=== PATIENT | female | born 1955 | race Caucasian/White ===

== ENCOUNTER 2022-08-20 07:00 | Outpatient (NON) | payer MEDICARE, SELFPAY | END 2022-08-21 10:00 | disposition home or self-care (01) | PROVIDERS: PCP Internal Medicine; Visit Provider Internal Medicine Gastroenterology | DX: Z12.11 Encounter for screening for malignant neoplasm of colon (principal); D12.2 Benign neoplasm of ascending colon; D12.4 Benign neoplasm of descending colon; D12.3 Benign neoplasm of transverse colon | CPT/HCPCS: 88305 ==

== ENCOUNTER 2022-08-20 07:48 | Day surgery (SDC) | payer MEDICARE, SELFPAY ==
[2022-06-07 09:56] VITALS: BMI 27.1
[2022-08-06 14:37] VITALS: BMI 27.1
--- NOTE | 2022-08-17 14:49 | PM.HPGS ---
History of Present Illness History of Present Illness Consent: Risks, benefits, and alternatives have been discussed and questions answered. Patient agrees to proceed with procedure. Chief complaint: History of colon polyps Narrative: Alba Arora is a 67 year old female who was referred for colon cancer screening. She had a tubular adenoma and another polyp removed about 6 years ago. Her brother from colon cancer recently. There is also strong family history of precancerous polyps. Review of Systems Review of Systems: All systems reviewed & are unremarkable except as noted in HPI and below PMFSH Past Medical History Medical History Anxiety Depression Diabetes type 2, controlled GERD (gastroesophageal reflux disease) Hyperlipidemia Hypertension Hypothyroidism Surgical History Surgical History History of thyroidectomy Social History Social History Smoking status: Never smoker Alcohol intake: never Substance use: never Substance use type: does not use Living arrangements: alone Spiritual care concerns: No Meds Home Medications and Allergies Home Medications Medication Instructions Recorded Confirmed Type amlodipine 10 mg tablet 10 mg PO DAILY 06/07/22 08/20/22 History glimepiride 2 mg tablet 2 mg PO BID 06/07/22 08/20/22 History levothyroxine 75 mcg tablet 75 mcg PO DAILY 06/07/22 08/20/22 History lovastatin 40 mg tablet 40 mg PO DAILY 06/07/22 08/20/22 History metformin 1,000 mg tablet 1,000 mg PO BID 06/07/22 08/20/22 History nortriptyline 10 mg capsule 10 mg PO DAILY 06/07/22 08/20/22 History omeprazole 40 mg capsule,delayed 40 mg PO DAILY 06/07/22 08/20/22 History release oxybutynin chloride 5 mg tablet 5 mg PO DAILY 06/07/22 08/20/22 History sertraline 100 mg tablet 10 mg PO DAILY 06/07/22 08/20/22 History Allergies Allergy/AdvReac Type Severity Reaction Status Date / Time Sulfa (Sulfonamide Allergy Severe Rash Verified 08/20/22 08:09 Antibiotics) Exam Const: General: alert Orientation/consciousness: patient oriented x3 Resp: Auscultation: clear to auscultation bilaterally Cardio: Rhythm: regular rhythm GI: GI Palp: Yes Soft to palpation and No Tenderness to palpation present (GI) Neuro: General: patient oriented x3 Assessment and Plan Assessment and plan (1) Colon cancer screening: Code(s): Z12.11 - Encounter for screening for malignant neoplasm of colon Status: Acute Assessment and Plan: Colonoscopy with possible biopsy or polypectomy or cautery or injection of substances.
--- NOTE | 2022-08-20 07:44 | WPDANESEPPF ---
Anes - Initial Pre Proc Eval Procedure: Operation Date: 08/20/22 09:30 Proposed Procedures p Diagnostic Colonoscopy - Bertrand Almonte MD Date/Time: 08/20/22 07:44 Surgeon: Bertrand Almonte MD Pre Op Diagnosis: History of colon polyps Patient Data Age: 67 Gender: F Height: 1.52 m Weight: 63 kg Allergies Allergy/AdvReac Type Severity Reaction Status Date / Time Sulfa (Sulfonamide Allergy Severe Rash Verified 08/20/22 08:09 Antibiotics) Home Medications Medication Instructions Recorded Confirmed Type amlodipine 10 mg tablet 10 mg PO DAILY 06/07/22 08/20/22 History glimepiride 2 mg tablet 2 mg PO BID 06/07/22 08/20/22 History levothyroxine 75 mcg tablet 75 mcg PO DAILY 06/07/22 08/20/22 History lovastatin 40 mg tablet 40 mg PO DAILY 06/07/22 08/20/22 History metformin 1,000 mg tablet 1,000 mg PO BID 06/07/22 08/20/22 History nortriptyline 10 mg capsule 10 mg PO DAILY 06/07/22 08/20/22 History omeprazole 40 mg capsule,delayed 40 mg PO DAILY 06/07/22 08/20/22 History release oxybutynin chloride 5 mg tablet 5 mg PO DAILY 06/07/22 08/20/22 History sertraline 100 mg tablet 10 mg PO DAILY 06/07/22 08/20/22 History Patient hx anesthesia problems: none Family hx anesthesia problems: none Results Review: All pre-operative results and documents have been reviewed as part of the pre-operative evaluation. [facility] Past Medical History Medical History (Updated 08/20/22 @ 07:45 by Matthias Ledesma DO) Anxiety Depression Diabetes type 2, controlled GERD (gastroesophageal reflux disease) Hyperlipidemia Hypertension Hypothyroidism Surgical History Surgical History (Updated 08/20/22 @ 07:44 by Matthias Ledesma DO) History of thyroidectomy Social History Social History Smoking status: Never smoker Alcohol intake: never Substance use: never Substance use type: does not use Living arrangements: alone Spiritual care concerns: No Anes - Eval Final PreProcedure Day of Procedure 08/20/22 07:44 Patient weight: overweight Heart: regular rate and rhythm Lungs: clear to auscultation Airway: Mallampati scale class II Neurological: alert and oriented Last oral intake: >/= 8 hours ASA classification: III Emergent: no Anesthetic plan: proceed Anesthesia type and monitoring: general GIVS and standard monitoring Results Review: All pre-operative results and documents have been reviewed as part of the pre-operative evaluation. Informed Consent: The patient's anesthetic plan and its attendant risks and benefits were discussed with the patient/family/POA. Questions were solicited and answers provided to the satisfaction of the patient/family/POA.
[2022-08-20 08:10] VITALS: BP 152/98; PULSE 104; RESP 18; TEMP 36.6; O2SAT 99
[2022-08-20] MEDS: LACTATED RINGERS 1,000 ML 150 ML IV CONT (08:19)
[2022-08-20 09:53] VITALS: BP 98/62; PULSE 80; RESP 14; O2SAT 94
[2022-08-20 10:03] VITALS: BP 100/65; PULSE 86; RESP 16; O2SAT 98
--- NOTE | 2022-08-20 12:04 | WPDANESPN ---
Anes - Prog Note Post-Op Date/Time: 08/20/22 12:04 Cardiovascular status: normal Respiratory status: normal Airway patency: baseline Mental status: baseline Post-Op hydration status: normal Vital Signs: Last Vital Signs Temp 36.6 C 08/20/22 08:10 Pulse 86 08/20/22 10:03 Resp 16 08/20/22 10:03 BP 100/65 08/20/22 10:03 Pulse Ox 98 08/20/22 10:03 O2 Del Method Room Air 08/20/22 10:03 Pain Score (VAS): 0 I/O: Intake & Output 08/19/22 08/20/22 08/20/22 23:59 07:59 15:59 Intake Total 922 Balance 922 Post-procedural complaints: none Patient Feedback: Patient satisfied with anesthetic care. Other Findings: Patient vital signs back to baseline. Patient denies nausea and vomiting. Patient's pain under control. Patient OK for discharge.
== END 2022-08-20 10:33 | disposition home or self-care (01) ==
PROVIDERS: PCP Internal Medicine; Visit Provider Internal Medicine Gastroenterology
PROC: 0DJD8ZZ Inspection of Lower Intestinal Tract, Via Natural or Artificial Opening Endoscopic (ICD-10-PCS; CPT 45378; principal; 2022-08-20 09:30)
DX: Z12.11 Encounter for screening for malignant neoplasm of colon (principal)
CPT/HCPCS: 45385

== ENCOUNTER 2024-05-01 10:13 | Inpatient (IN) | payer MEDICARE, SELFPAY ==
[2024-05-01] VITALS (18 sets, daily range): BP systolic 105–136; BP diastolic 59–83; PULSE 75–97; RESP 13–25; TEMP 36.6–36.9; O2SAT 89–100; BMI 24.5
--- NOTE | ~2024-05-01 | XR_ITS ---
XR chest 2V DATE: 05/01/2024 11:19 INDICATION: Bilateral basilar rhonchi TECHNIQUE: 2 views COMPARISON: None FINDINGS: Normal heart size. There are mild bibasilar infiltrates and/or atelectasis. The lungs otherwise appear clear. No pleural effusion or pulmonary vascular congestion or pneumothorax. Osteopenia. IMPRESSION: Mild bilateral lower lobe infiltrate and/or atelectasis Reviewed, dictated and finalized at location A. [facility] [employer]
--- NOTE | 2024-05-01 10:24 | ECG_ITS ---
Test Date: 2024-05-01 10:30:11 Measurements Intervals [place] Rate: 91 P: 50 [place]: 162 QRS: 21 QRSD: 90 T: 70 QT: 351 QTc: 433 Interpretive Statements SINUS RHYTHM DELAYED PRECORDIAL R/S TRANSITION BORDERLINE T WAVE ABNORMALITY- HIGH LATERAL LEADS BASELINE ARTIFACT- I, III, AVR, AVL, AVF, V6 BORDERLINE ECG No previous ECG available for comparison Electronically Signed On 05-01-2024 10:33:15 [employer]PA[employer] by Chepe Gupta D.O.
--- NOTE | 2024-05-01 10:34 | ED.GENADULT ---
HPI - General Adult General Chief complaint: Shortness of Breath/Dyspnea Stated complaint: SOB & Fever Time Seen by Provider: 05/01/24 10:22 History of Present Illness HPI narrative: This is a pleasant 69-year-old female presenting ED with chief complaint of fevers and shortness of breath. Patient developed a cough 3 weeks ago. She had been doing better and then got acutely worse several days ago. Now she is short of breath, has a productive cough and fevers. 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 Related Data Home Medications Medication Instructions Recorded Confirmed amlodipine 10 mg tablet 10 mg PO DAILY 06/07/22 08/20/22 glimepiride 2 mg tablet 2 mg PO BID 06/07/22 08/20/22 levothyroxine 75 mcg tablet 75 mcg PO DAILY 06/07/22 08/20/22 lovastatin 40 mg tablet 40 mg PO DAILY 06/07/22 08/20/22 metformin 1,000 mg tablet 1,000 mg PO BID 06/07/22 08/20/22 nortriptyline 10 mg capsule 10 mg PO DAILY 06/07/22 08/20/22 omeprazole 40 mg capsule,delayed 40 mg PO DAILY 06/07/22 08/20/22 release oxybutynin chloride 5 mg tablet 5 mg PO DAILY 06/07/22 08/20/22 sertraline 100 mg tablet 10 mg PO DAILY 06/07/22 08/20/22 Allergies Allergy/AdvReac Type Severity Reaction Status Date / Time Sulfa (Sulfonamide Allergy Severe Rash Verified 08/20/22 08:09 Antibiotics) [facility] Past Medical History Medical History Anxiety Depression Diabetes type 2, controlled GERD (gastroesophageal reflux disease) Hyperlipidemia Hypertension Hypothyroidism Surgical History Surgical History History of thyroidectomy Social History Social History Smoking status: Never smoker Alcohol intake: never Substance use: never Substance use type: does not use Living arrangements: alone Spiritual care concerns: No Exam Narrative: APPEARANCE: ill-appearing Head: atraumatic. EYES: EOMI, NOSE: Atraumatic NECK: Trachea midline RESPIRATORY: Tachypneic, hypoxic on room air, bibasilar rhonchi CARDIOVASCULAR: tachycardic, no peripheral edema ABDOMINAL: Non-distended soft nontender MUSCULOSKELETAl: No obvious deformities NEURO: Alert. Moving 4/4 extremities SKIN:: Warm, dry. Normal color PSYCHIATRIC: Normal affect Course Vital Signs Vital signs: Vital Signs Temperature 97.8 F 05/01/24 10:14 Pulse Rate 97 05/01/24 10:14 Respiratory Rate 18 05/01/24 10:14 Blood Pressure 124/69 05/01/24 10:14 Pulse Oximetry 98 05/01/24 10:14 Oxygen Delivery Nasal Cannula 05/01/24 10:14 Oxygen Flow Rate 2 05/01/24 10:14 Temperature 97.8 F 05/01/24 10:14 Pulse Rate 76 05/01/24 11:42 Respiratory Rate 13 05/01/24 11:42 Blood Pressure 112/62 05/01/24 11:42 Pulse Oximetry 97 05/01/24 11:42 Oxygen Delivery Nasal Cannula 05/01/24 10:24 Oxygen Flow Rate 2 05/01/24 10:24 Medical Decision Making MDM Narrative Medical decision making narrative: -Course: 61-year-old female presenting with 3 weeks of cough which has become acutely worse. Now she is hypoxic requiring supplemental oxygen and having fevers. Bibasilar rhonchi. Atelectasis versus bibasilar pneumonia on chest x-ray. Patient's history and physical are consistent with secondary pneumonia after viral illness. Patient be started on antibiotics/given fluid resusc and admitted to the hospital for hypoxic respiratory failure and pneumonia. Vital Signs Vital Signs: Vital Signs Temperature 97.8 F 05/01/24 10:14 Pulse Rate 97 05/01/24 10:14 Respiratory Rate 18 05/01/24 10:14 Blood Pressure 124/69 05/01/24 10:14 Pulse Oximetry 98 05/01/24 10:14 Oxygen Delivery Nasal Cannula 05/01/24 10:14 Oxygen Flow Rate 2 05/01/24 10:14 Temperature 97.8 F 05/01/24 10:14 Pulse Rate 76 05/01/24 11:42 Respiratory Rate 13 05/01/24 11:42 Blood Pressure 112/62 05/01/24 11:42 Pulse Oximetry 97 05/01/24 11:42 Oxygen Delivery Nasal Cannula 05/01/24 10:24 Oxygen Flow Rate 2 05/01/24 10:24 Lab Data 05/01/24 10:36 05/01/24 10:36 Labs: Lab Results 05/01/24 05/01/24 Range/Units 10:36 11:53 WBC 8.7 (4.5-10.0) K/mm3 RBC 3.68 L (4.2-5.4) M/mm3 Hgb 11.3 L (12.0-15.0) g/dL Hct 34.1 L (37.0-47.0) % MCV 92.7 (80-100) fl MCH 30.7 (26-34) pg MCHC 33.1 (32-36) g/dl RDW 14.2 (11.5-14.5) % Plt Count 236 (150-375) k/mm3 MPV 9.9 (7.4-10.4) fl Immature Gran % (Auto) 0.5 (0-0.5) % Neut % (Auto) 69.0 (45.5-73.1) % Lymph % (Auto) 17.5 L (18.3-44.2) % [place] % (Auto) 12.2 H (2.6-8.5) % Eos % (Auto) 0.5 (0-4.4) % Baso % (Auto) 0.3 (0.2-1.2) % Lymph # (Auto) 1.52 (0.9-3.2) K/mm3 [place] # (Auto) 1.1 H (0.1-0.6) K/mm3 Eos # (Auto) 0.0 (0-0.3) K/mm3 Baso # (Auto) 0.0 (0.0-0.1) K/mm3 Abs Immat Gran (auto) 0.04 H (0.00-0.031) K/mm3 Absolute Neuts (auto) 6.0 (1.3-6.7) K/mm3 Absolute Nucleated RBC 0.000 (0.0-0.012) K/mm3 Nucleated RBC % 0.0 (0.0-0.2) % Sodium 139 (137-145) mmol/L Potassium 4.2 (3.4-5.0) mmol/L Chloride 102 (98-107) mmol/L Carbon Dioxide 27 (22-30) mmol/L Anion Gap 10 (4-12) mmol/L BUN 25 H (7-17) mg/dL Creatinine 1.00 (0.7-1.0) mg/dL Estim Creat Clear Calc 34 ml/min Estimated GFR 55 L (59 - ) Glucose 187 H (65-110) mg/dL POC Capillary Glucose 122 H (65-105) mg/dl Lactic Acid 1.3 (0.7-2.0) mmol/L Calcium 9.1 (8.4-10.2) mg/dL Total Bilirubin 0.6 (0.2-1.3) mg/dL AST 21 (14-36) U/L ALT 15 (6-35) U/L Alkaline Phosphatase 79 (38-126) U/L Total Protein 7.0 (6.3-8.2) g/dL Albumin 3.6 (3.5-5.1) g/dL Influenza A (RT-PCR) Negative (Negative) Influenza B (RT-PCR) Negative (Negative) RSV (RT-PCR) Negative (Negative) SARS-CoV-2 RNA (RT-PCR) Negative (Negative) ABG Data ABG results: 05/01/24 10:59 Puncture Site Left radial ABG pH 7.453 H ABG pCO2 34.9 L ABG pO2 59.1 L ABG PO2/FiO2 Ratio 2.11 ABG HCO3 23.9 ABG O2 Saturation 92.0 L ABG O2 Content 15.0 L ABG Base Excess 0.3 A-a Gradient 99.4 Oxyhemoglobin 90.6 Total Hemoglobin 11.8 L O2 Delivery Device Nasal cannula O2 Liters/Min 2.0 FiO2 28 Critical Care Time Critical Care Time Critical Care Time: Yes Total Critical Care Time: 35 Discharge Plan Discharge Clinical Impression: Hypoxic respiratory failure, Pneumonia Patient Disposition: Still a Patient Condition: Stable Prescriptions: No Action lovastatin 40 mg tablet 40 mg PO DAILY sertraline 100 mg tablet 10 mg PO DAILY omeprazole 40 mg capsule,delayed release(DR/EC) 40 mg PO DAILY glimepiride 2 mg tablet 2 mg PO BID levothyroxine 75 mcg tablet 75 mcg PO DAILY amlodipine 10 mg tablet 10 mg PO DAILY metformin 1,000 mg tablet 1,000 mg PO BID nortriptyline 10 mg capsule 10 mg PO DAILY oxybutynin chloride 5 mg tablet 5 mg PO DAILY Follow-up/Referrals: Clive,Don Daley MD [Primary Care Provider] -
[2024-05-01] MEDS: ACETAMINOPHEN 500 MG TABLET 1000 MG PO (10:47)
[2024-05-01] MEDS: KETOROLAC 15 MG/ML VIAL (*BKC) IV PUSH (10:47)
[2024-05-01] MEDS: SODIUM CHLORIDE 0.9% IV 2,000 ML 999 ML IV CONT (10:48)
[2024-05-01 10:55] LABS: Basophils Percent Auto 0.3 % (0.2-1.2); Eosinophils Percent Auto 0.5 % (0-4.4); Hematocrit 34.1 % (37.0-47.0); Hemoglobin 11.3 g/dL (12.0-15.0); Immature Granulocyte Absolute 0.04 K/mm3 (0.00-0.031); Immature Granulocyte Percent A 0.5 % (0-0.5); Lymphocytes Absolute Auto 1.52 K/mm3 (0.9-3.2); Lymphocytes Percent Auto 17.5 % (18.3-44.2); Mean Corpuscular HGB Conc 33.1 g/dl (32-36); Mean Corpuscular Hemoglobin 30.7 pg (26-34); Mean Corpuscular Volume 92.7 fl (80-100); Mean Platelet Volume 9.9 fl (7.4-10.4); Monocytes Absolute Auto 1.1 K/mm3 (0.1-0.6); Monocytes Percent Auto 12.2 % (2.6-8.5); Platelet Count Result 236 k/mm3 (150-375); Red Blood Count 3.68 M/mm3 (4.2-5.4); Red Cell Distribution Width 14.2 % (11.5-14.5); White Blood Count 8.7 K/mm3 (4.5-10.0)
[2024-05-01 11:01] LABS: Alanine Aminotransferase 15 U/L (6-35); Albumin Level 3.6 g/dL (3.5-5.1); Alkaline Phosphatase 79 U/L (38-126); Anion Gap 10 mmol/L (4-12); Aspartate Amino Transferase 21 U/L (14-36); Bilirubin,Total 0.6 mg/dL (0.2-1.3); Blood Urea Nitrogen 25 mg/dL (7-17); Calcium 9.1 mg/dL (8.4-10.2); Carbon Dioxide 27 mmol/L (22-30); Chloride 102 mmol/L (98-107); Estimated CRCL calculation 34 ml/min; Estimated Glomerular Filt Rate 55; Glucose 187 mg/dL (65-110); Lactic Acid Reflex 1.3 mmol/L (0.7-2.0); Potassium 4.2 mmol/L (3.4-5.0); Sodium 139 mmol/L (137-145)
[2024-05-01 11:02] LABS: Alveolar/Arterial O2 Gradient 99.4 mmHg; Base Excess ABG 0.3 mEq/l (+/-2.0); Fractional Inspired Oxygen 28 %; HCO3 ABG 23.9 mEq/l (22.0-26.0); Oxyhemoglobin 90.6 % THb (90.0-100.0); PCO2 ABG 34.9 mmHg (35.0-45.0); PO2 ABG 59.1 mmHg (80.0-100.0); PO2 FiO2 Ratio Arterial Blood 2.11 %; Total Hemoglobin 11.8 g/dL (12.0-18.0); pH ABG 7.453 (7.350-7.450)
[2024-05-01 11:04] LABS: Device NASAL CANNULA; Modified Allen's Test Pass; Site Drawn LEFT RADIAL
[2024-05-01 11:29] LABS: Influenza A QL RT-PCR Negative (Negative); Influenza B QL RT-PCR Negative (Negative); RSV RNA, RT-PCR Negative (Negative); SARS-CoV-2 RNA PCR Negative (Negative)
[2024-05-01 11:56] LABS: Glucose Point of Care 122 mg/dl (65-105)
[2024-05-01] MEDS: DOXYCYCLINE 100 MG/NS 100 ML 100 MG/100 ML BAG IVPB ×2 (12:13→20:36)
--- NOTE | 2024-05-01 13:10 | PM.IMHP ---
H&P: HPI History of Present Illness Date/Time: 05/01/24 13:10 Chief Complaint: Shortness of breath Narrative: This is a pleasant 69-year-old female presenting ED with chief complaint of fevers and shortness of breath. Patient developed a cough 3 weeks ago. She had been doing better and then got acutely worse several days ago. Now she is short of breath, has a productive cough and fevers. 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 Review of Systems Review of Systems: - CONSTITUTIONAL: Denies weight loss, fever and chills. - HEENT: Denies changes in vision and hearing - RESPIRATORY: Reports SOB and cough. - CV: Denies palpitations and CP. - GI: Denies abdominal pain, nausea, vomiting and diarrhea. - : Denies dysuria and urinary frequency. - MSK: Denies myalgia and joint pain. - SKIN: Denies rash and pruritus. - NEUROLOGICAL: Denies headache and syncope. - PSYCHIATRIC: Denies recent changes in mood. Denies anxiety and depression. [facility], [facility] Past Medical History Medical History Anxiety Depression Diabetes type 2, controlled GERD (gastroesophageal reflux disease) Hyperlipidemia Hypertension Hypothyroidism Surgical History Surgical History History of thyroidectomy Social History Social History Smoking status: Never smoker Alcohol intake: never Substance use: never Substance use type: does not use Living arrangements: alone Spiritual care concerns: No Meds Home Medications and Allergies Home Medications Medication Instructions Recorded Confirmed Type amlodipine 10 mg tablet 10 mg PO DAILY 06/07/22 05/01/24 History glimepiride 2 mg tablet 2 mg PO BID 06/07/22 05/01/24 History levothyroxine 75 mcg tablet 75 mcg PO DAILY 06/07/22 05/01/24 History metformin 1,000 mg tablet 1,000 mg PO BID 06/07/22 05/01/24 History omeprazole 40 mg capsule,delayed 40 mg PO DAILY 06/07/22 05/01/24 History release oxybutynin chloride 5 mg tablet 5 mg PO BID 06/07/22 05/01/24 History sertraline 100 mg tablet 100 mg PO DAILY 06/07/22 05/01/24 History lisinopril 5 mg tablet 5 mg PO DAILY 05/01/24 05/01/24 History rosuvastatin 20 mg tablet 20 mg PO 1700 05/01/24 05/01/24 History Allergies Allergy/AdvReac Type Severity Reaction Status Date / Time Sulfa (Sulfonamide Allergy Severe Rash Verified 08/20/22 08:09 Antibiotics) Vital Signs Vital Signs - 24 hr 05/01/24 10:14 05/01/24 10:20 05/01/24 10:24 Temperature 97.8 F Pulse Rate 97 Respiratory Rate 18 Blood Pressure 124/69 Pulse Oximetry 98 89 L 99 Oxygen Delivery Nasal Cannula Room Air Nasal Cannula Oxygen Flow Rate 2 2 05/01/24 10:20 05/01/24 11:42 05/01/24 11:43 Temperature Pulse Rate 76 82 Respiratory Rate 13 18 Blood Pressure 112/62 Pulse Oximetry 99 97 97 Oxygen Delivery Nasal Cannula Oxygen Flow Rate 2 05/01/24 11:45 05/01/24 11:46 05/01/24 12:00 Temperature Pulse Rate 81 78 80 Respiratory Rate 13 20 25 H Blood Pressure 115/62 117/59 L Pulse Oximetry 97 96 98 Oxygen Delivery Oxygen Flow Rate 05/01/24 12:01 05/01/24 12:15 05/01/24 12:30 Temperature Pulse Rate 80 75 76 Respiratory Rate 21 H 18 16 Blood Pressure 117/83 118/59 L Pulse Oximetry 98 100 95 Oxygen Delivery Oxygen Flow Rate 05/01/24 12:31 05/01/24 12:45 05/01/24 12:46 Temperature Pulse Rate 76 77 75 Respiratory Rate 17 19 14 Blood Pressure 118/62 Pulse Oximetry 93 94 95 Oxygen Delivery Oxygen Flow Rate Exam Narrative: APPEARANCE: well-appearingAcute distress Head: atraumatic. EYES: EOMI, NOSE: Atraumatic NECK: Trachea midline RESPIRATORY: Diminished breath sounds bilaterally no respiratory distress CARDIOVASCULAR: Regular rate and rhythm, no peripheral edema ABDOMINAL: Non-distended soft nontender MUSCULOSKELETAl: No obvious deformities NEURO: Alert. Moving 4/4 extremities SKIN:: Warm, dry. Normal color PSYCHIATRIC: Normal affect H&P: Results Labs Labs: Short CBC 05/01/24 Range/Units 10:36 WBC 8.7 (4.5-10.0) K/mm3 Hgb 11.3 L (12.0-15.0) g/dL Hct 34.1 L (37.0-47.0) % Plt Count 236 (150-375) k/mm3 BMP 05/01/24 10:36 Sodium 139 Potassium 4.2 Chloride 102 Carbon Dioxide 27 BUN 25 H Creatinine 1.00 Glucose 187 H Calcium 9.1 Liver Function 05/01/24 Range/Units 10:36 Total Bilirubin 0.6 (0.2-1.3) mg/dL AST 21 (14-36) U/L ALT 15 (6-35) U/L Alkaline Phosphatase 79 (38-126) U/L Albumin 3.6 (3.5-5.1) g/dL Assessment and Plan Assessment and plan (1) Hypoxic respiratory failure: Code(s): J96.91 - Respiratory failure, unspecified with hypoxia Status: Acute (2) Pneumonia: Code(s): J18.9 - Pneumonia, unspecified organism Status: Acute Plan This is a pleasant 69-year-old female presenting ED with chief complaint of fevers and shortness of breath. Patient developed a cough 3 weeks ago. She had been doing better and then got acutely worse few days ago. Now she is short of breath, has a productive cough and fevers. 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 Evaluation in the ED showed vitals were stable except for hypoxia he chest x-ray showed this is versus bibasilar pneumonia. WBC normal is 8.7 hemoglobin 11.3 hematocrit 34.1 chemistry panel was unremarkable better glycemia 187. Lactic acid was 1.3. Influenza RSV and COVID was negative. ABG 7.45/34/59/23. She has been started on ceftriaxone and doxycycline for pneumonia. Urine antigens will be ordered. Continue oxygen supplementation. Likely secondary to pneumonia. Hypothyroidism Hyperlipidemia Type 2 diabetes on oral hypoglycemic agent at home DVT prophylaxis Lovenox Code status full code Hospitalist MIPS Advance Care Plan I have confirmed that the patient's Advanced Care Plan is present, code status is documented, or surrogate decision maker is listed in patient medical record.: Yes Medication Reconciliation I have utilized all available resources to obtain, update and review the patients current medications (includes all prescriptions, OTC, herbals, cannabis, and nutritional supplements).: Yes
--- NOTE | 2024-05-01 13:33 | ADMGEN ---
This patient, Alba Arora, was admitted to [facility] Surg Room 300-01. Patient/family oriented to hospital policies and general routines including ID bracelet, bed and alarms, visiting hours, pain management, procedures, bathroom and other care routines, personal items, smoking policy, room service/diet, and visiting hours. Information on how to activate the Rapid Response Team has been discussed. Patient/Family are encouraged to report perceived risks to care and to ask questions if they do not understand what they are told or what they should do.
[2024-05-01] MEDS: ENOXAPARIN 40 MG/0.4 ML SYRINGE SUB-Q (13:38)
[2024-05-01] MEDS: oxyBUTYnin CHLORIDE 5 MG TABLET PO (16:04)
[2024-05-01] MEDS: ROSUVASTATIN 20 MG TABLET PO (16:04)
[2024-05-01 16:43] LABS: Hemoglobin A1C 6.2 % (<5.7)
[2024-05-01 17:12] LABS: Glucose Point of Care 153 mg/dl (65-105)
[2024-05-01 20:57] LABS: Glucose Point of Care 175 mg/dl (65-105)
[2024-05-01] MEDS: guaiFENesin 12 HR 600 MG TABCR 1200 MG PO (21:07)
[2024-05-01] MEDS: ACETAMINOPHEN 325 MG TABLET 650 MG PO (21:07)
[2024-05-01] MEDS: ALBUTEROL SULFATE (*SP) AEROSOL 1 PUFF 2 PUFF INHALATION (21:11)
[2024-05-02] MEDS: ALBUTEROL SULFATE (*SP) AEROSOL 1 PUFF 2 PUFF INHALATION (05:27)
[2024-05-02] MEDS: ACETAMINOPHEN 325 MG TABLET 650 MG PO ×2 (05:28→12:06)
[2024-05-02] MEDS: LEVOTHYROXINE SODIUM 75 MCG TABLET PO (05:36)
[2024-05-02 06:00] VITALS: BP 132/69; PULSE 71; RESP 18; TEMP 36.6; O2SAT 97
[2024-05-02 07:42] LABS: Glucose Point of Care 190 mg/dl (65-105)
[2024-05-02 08:00] VITALS: O2SAT 97
[2024-05-02] MEDS: SERTRALINE HCL 50 MG TABLET 100 MG PO (08:39)
[2024-05-02] MEDS: lisinopriL 5 MG TABLET PO (08:40)
[2024-05-02] MEDS: oxyBUTYnin CHLORIDE 5 MG TABLET PO ×2 (08:40→17:34)
[2024-05-02] MEDS: PANTOPRAZOLE 40 MG TABLET PO (08:40)
[2024-05-02] MEDS: guaiFENesin 12 HR 600 MG TABCR 1200 MG PO ×2 (08:40→20:02)
[2024-05-02] MEDS: amLODIPine BESYLATE 10 MG TABLET PO (08:40)
[2024-05-02] MEDS: DOXYCYCLINE 100 MG/NS 100 ML 100 MG/100 ML BAG IVPB ×2 (08:40→20:01)
[2024-05-02] MEDS: ENOXAPARIN 40 MG/0.4 ML SYRINGE SUB-Q (08:41)
[2024-05-02 09:20] VITALS: O2SAT 97
--- NOTE | 2024-05-02 10:53 | P.PNIM_ITS ---
Progress Note: A&P Assessment and Plan (1) Hypoxic respiratory failure: Code(s): J96.91 - Respiratory failure, unspecified with hypoxia Status: Acute (2) Pneumonia: Code(s): J18.9 - Pneumonia, unspecified organism Status: Acute Plan This is a pleasant 69-year-old female presenting ED with chief complaint of fevers and shortness of breath. Patient developed a cough 3 weeks ago. She had been doing better and then got acutely worse few days ago. Now she is short of breath, has a productive cough and fevers. 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 Evaluation in the ED showed vitals were stable except for hypoxia he chest x-ray showed this is versus bibasilar pneumonia. WBC normal is 8.7 hemoglobin 11.3 hematocrit 34.1 chemistry panel was unremarkable better glycemia 187. Lactic acid was 1.3. Influenza RSV and COVID was negative. ABG 7.45/34/59/23. She has been started on ceftriaxone and doxycycline for pneumonia. Urine antigens will be ordered. Continue oxygen supplementation. Likely secondary to pneumonia. Taper oxygen as tolerated. Hypothyroidism Hyperlipidemia Type 2 diabetes on oral hypoglycemic agent at home DVT prophylaxis Lovenox Code status full code Subjective Date/time seen: 05/02/24 10:53 Interval history: No overnight events. Feels better. Still on 2 L oxygen. Labs reviewed discussed with the patient. Review of Systems Review of Systems: All systems reviewed & are unremarkable except as noted in HPI and below Exam Narrative: APPEARANCE: well-appearingAcute distress Head: atraumatic. EYES: EOMI, NOSE: Atraumatic NECK: Trachea midline RESPIRATORY: Diminished breath sounds bilaterally no respiratory distress CARDIOVASCULAR: Regular rate and rhythm, no peripheral edema ABDOMINAL: Non-distended soft nontender MUSCULOSKELETAl: No obvious deformities NEURO: Alert. Moving 4/4 extremities SKIN:: Warm, dry. Normal color PSYCHIATRIC: Normal affect Objective Data Vital Signs Vital Signs: Vital Signs - 24 hr 05/01/24 11:42 05/01/24 11:43 05/01/24 11:45 Temperature Pulse Rate 76 82 81 Respiratory Rate 13 18 13 Blood Pressure 112/62 Pulse Oximetry 97 97 97 Oxygen Delivery Oxygen Flow Rate Fraction of Inspired Oxygen 05/01/24 11:46 05/01/24 12:00 05/01/24 12:01 Temperature Pulse Rate 78 80 80 Respiratory Rate 20 25 H 21 H Blood Pressure 115/62 117/59 L Pulse Oximetry 96 98 98 Oxygen Delivery Oxygen Flow Rate Fraction of Inspired Oxygen 05/01/24 12:15 05/01/24 12:30 05/01/24 12:31 Temperature Pulse Rate 75 76 76 Respiratory Rate 18 16 17 Blood Pressure 117/83 118/59 L Pulse Oximetry 100 95 93 Oxygen Delivery Oxygen Flow Rate Fraction of Inspired Oxygen 05/01/24 12:45 05/01/24 12:46 05/01/24 13:48 Temperature Pulse Rate 77 75 Respiratory Rate 19 14 Blood Pressure 118/62 Pulse Oximetry 94 95 95 Oxygen Delivery Nasal Cannula Oxygen Flow Rate 2 Fraction of Inspired Oxygen 05/01/24 14:00 05/01/24 21:18 05/01/24 20:00 Temperature 98.1 F 98.4 F Pulse Rate 83 96 Respiratory Rate 18 18 Blood Pressure 105/60 136/72 Pulse Oximetry 97 92 92 Oxygen Delivery Nasal Cannula Oxygen Flow Rate 2 Fraction of Inspired Oxygen 05/02/24 06:00 05/02/24 08:00 05/02/24 09:20 Temperature 98 F Pulse Rate 71 Respiratory Rate 18 Blood Pressure 132/69 Pulse Oximetry 97 97 97 Oxygen Delivery Nasal Cannula Nasal Cannula Oxygen Flow Rate 2 2 Fraction of Inspired Oxygen 28 Intake/Output Intake/Output: Intake & Output 04/29/24 04/30/24 05/01/24 05/02/24 23:59 23:59 23:59 23:59 Intake Total 2940 998 Output Total 500 Balance 2940 498 Meds/Results Medications: Active Medications Generic Name Dose Route Start Last Admin Trade Name Freq PRN Reason Stop Dose Admin Acetaminophen 650 mg 05/01/24 20:44 05/02/24 05:28 Acetaminophen 325 Mg Tablet PO 650 mg Q6H PRN Administration Mild Pain (1-3) or Fever Albuterol 2 puff 05/01/24 20:44 05/02/24 05:27 Albuterol Sulfate (*Sp) Aerosol 1 Puff INHALATION 2 puff QIDRT PRN Administration Shortness Of Breath Amlodipine Besylate 10 mg 05/02/24 09:00 05/02/24 08:40 Amlodipine Besylate 10 Mg Tablet PO 10 mg DAILY STEFANIE Administration Dextrose 12.5 gm 05/01/24 15:08 Dextrose 50% 25 Gm/50 Ml Syringe IV PUSH PRN PRN Hypoglycemia Protocol Enoxaparin Sodium 40 mg 05/01/24 13:15 05/02/24 08:41 Enoxaparin 40 Mg/0.4 Ml Syringe SUB-Q 40 mg DAILY STEFANIE Administration Glucagon 1 mg 05/01/24 15:08 Glucagon For Inj 1 Mg Vial IM PRN PRN Hypoglycemia Protocol Glucose 15 gm 05/01/24 15:08 Glucose Oral Gel 15 Gm Of Glucse In 37.5 Gm Tube PO PRN PRN Hypoglycemia Protocol Guaifenesin 1,200 mg 05/01/24 21:00 05/02/24 08:40 Guaifenesin 12 Hr 600 Mg Tabcr PO 1,200 mg Q12HR STEFANIE Administration Ceftriaxone Sodium 1 gm in 50 mls @ 100 mls/hr 05/02/24 12:00 Rocephin 1 Gm/Ns 50 Ml IVPB Q24H STEFANIE Doxycycline Hyclate 100 mg in 100 mls @ 100 mls/hr 05/01/24 21:00 05/02/24 08:40 Vibramycin 100 Mg/Ns 100 Ml IVPB 100 mls/hr Q12H STEFANIE Administration Dextrose 1,000 mls @ 100 mls/hr 05/01/24 15:08 Dextrose 5% 1,000 Ml IVPB PRN PRN Hypoglycemia Protocol Insulin Aspart 2 - 5 units 05/01/24 17:00 05/02/24 08:41 Insulin Aspart (*Bkc) 100 Units/Ml SUB-Q Not Given TIDWM STEFANIE Protocol Insulin Aspart 1 - 2 units 05/01/24 21:00 05/01/24 20:53 Insulin Aspart (*Bkc) 100 Units/Ml SUB-Q Not Given HS STEFANIE Protocol Levothyroxine Sodium 75 mcg 05/02/24 06:30 05/02/24 05:36 Levothyroxine Sodium 75 Mcg Tablet PO 75 mcg DAILY@0630 STEFANIE Administration Lisinopril 5 mg 05/02/24 09:00 05/02/24 08:40 Lisinopril 5 Mg Tablet PO 5 mg DAILY STEFANIE Administration Oxybutynin Chloride 5 mg 05/01/24 17:00 05/02/24 08:40 Oxybutynin Chloride 5 Mg Tablet PO 5 mg BID STEFANIE Administration Pantoprazole Sodium 40 mg 05/02/24 09:00 11/30/24 08:40 Pantoprazole 40 Mg Tablet PO 40 mg QAM STEFANIE Administration Rosuvastatin Calcium 20 mg 05/01/24 17:00 05/01/24 16:04 Rosuvastatin 20 Mg Tablet PO 20 mg 1700 STEFANIE Administration Sertraline HCl 100 mg 05/02/24 09:00 05/02/24 08:39 Sertraline Hcl 50 Mg Tablet PO 100 mg DAILY STEFANIE Administration Radiology Results: ITS Impressions Chest X-Ray 05/01/24 11:23 IMPRESSION: Mild bilateral lower lobe infiltrate and/or atelectasis Labs Labs: Laboratory Results - last 24 hr 05/01/24 05/01/24 05/01/24 10:36 10:59 11:53 WBC 8.7 RBC 3.68 L Hgb 11.3 L Hct 34.1 L MCV 92.7 MCH 30.7 MCHC 33.1 RDW 14.2 Plt Count 236 MPV 9.9 Immature Gran % (Auto) 0.5 Neut % (Auto) 69.0 Lymph % (Auto) 17.5 L [place] % (Auto) 12.2 H Eos % (Auto) 0.5 Baso % (Auto) 0.3 Lymph # (Auto) 1.52 [place] # (Auto) 1.1 H Eos # (Auto) 0.0 Baso # (Auto) 0.0 Abs Immat Gran (auto) 0.04 H Absolute Neuts (auto) 6.0 Absolute Nucleated RBC 0.000 Nucleated RBC % 0.0 Puncture Site Left radial ABG pH 7.453 H ABG pCO2 34.9 L ABG pO2 59.1 L ABG PO2/FiO2 Ratio 2.11 ABG HCO3 23.9 ABG O2 Saturation 92.0 L ABG O2 Content 15.0 L ABG Base Excess 0.3 A-a Gradient 99.4 Oxyhemoglobin 90.6 Total Hemoglobin 11.8 L O2 Delivery Device Nasal cannula O2 Liters/Min 2.0 FiO2 28 Sodium 139 Potassium 4.2 Chloride 102 Carbon Dioxide 27 Anion Gap 10 BUN 25 H Creatinine 1.00 Estim Creat Clear Calc 34 Estimated GFR 55 L Glucose 187 H POC Capillary Glucose 122 H Hemoglobin A1c 6.2 H Lactic Acid 1.3 Calcium 9.1 Total Bilirubin 0.6 AST 21 ALT 15 Alkaline Phosphatase 79 Total Protein 7.0 Albumin 3.6 Influenza A (RT-PCR) Negative Influenza B (RT-PCR) Negative RSV (RT-PCR) Negative SARS-CoV-2 RNA (RT-PCR) Negative 05/01/24 05/01/24 05/02/24 17:08 19:52 07:34 WBC RBC Hgb Hct MCV MCH MCHC RDW Plt Count MPV Immature Gran % (Auto) Neut % (Auto) Lymph % (Auto) [place] % (Auto) Eos % (Auto) Baso % (Auto) Lymph # (Auto) [place] # (Auto) Eos # (Auto) Baso # (Auto) Abs Immat Gran (auto) Absolute Neuts (auto) Absolute Nucleated RBC Nucleated RBC % Puncture Site ABG pH ABG pCO2 ABG pO2 ABG PO2/FiO2 Ratio ABG HCO3 ABG O2 Saturation ABG O2 Content ABG Base Excess A-a Gradient Oxyhemoglobin Total Hemoglobin O2 Delivery Device O2 Liters/Min FiO2 Sodium Potassium Chloride Carbon Dioxide Anion Gap BUN Creatinine Estim Creat Clear Calc Estimated GFR Glucose POC Capillary Glucose 153 H 175 H 190 H Hemoglobin A1c Lactic Acid Calcium Total Bilirubin AST ALT Alkaline Phosphatase Total Protein Albumin Influenza A (RT-PCR) Influenza B (RT-PCR) RSV (RT-PCR) SARS-CoV-2 RNA (RT-PCR)
[2024-05-02 11:45] LABS: Glucose Point of Care 152 mg/dl (65-105)
[2024-05-02] MEDS: BENZONATATE 100 MG CAPSULE PO ×2 (12:06→17:34)
[2024-05-02 13:46] VITALS: BP 104/51; PULSE 76; RESP 16; TEMP 36.6; O2SAT 96
[2024-05-02] MEDS: guaiFENesin/CODEINE (*CRX) 200/20 MG 10 ML SYRUP PO ×2 (15:26→20:02)
[2024-05-02 16:34] LABS: Glucose Point of Care 86 mg/dl (65-105)
[2024-05-02] MEDS: ROSUVASTATIN 20 MG TABLET PO (17:34)
[2024-05-02 22:00] VITALS: BP 111/61; PULSE 74; RESP 18; TEMP 36.6; O2SAT 98
[2024-05-02 22:50] LABS: Glucose Point of Care 123 mg/dl (65-105)
[2024-05-03] MEDS: guaiFENesin/CODEINE (*CRX) 200/20 MG 10 ML SYRUP PO ×5 (01:05→20:46)
[2024-05-03] MEDS: BENZONATATE 100 MG CAPSULE PO ×4 (01:05→16:41)
[2024-05-03] MEDS: LEVOTHYROXINE SODIUM 75 MCG TABLET PO (05:33)
[2024-05-03 06:00] VITALS: BP 112/64; PULSE 87; RESP 18; TEMP 36.4; O2SAT 98
[2024-05-03 06:20] LABS: Basophils Percent Auto 0.5 % (0.2-1.2); Eosinophils Absolute Auto 0.2 K/mm3 (0-0.3); Eosinophils Percent Auto 2.3 % (0-4.4); Hematocrit 31.6 % (37.0-47.0); Hemoglobin 10.2 g/dL (12.0-15.0); Immature Granulocyte Percent A 1.2 % (0-0.5); Lymphocytes Absolute Auto 1.93 K/mm3 (0.9-3.2); Lymphocytes Percent Auto 23.2 % (18.3-44.2); Mean Corpuscular HGB Conc 32.3 g/dl (32-36); Mean Corpuscular Hemoglobin 30.4 pg (26-34); Mean Corpuscular Volume 94.3 fl (80-100); Mean Platelet Volume 9.4 fl (7.4-10.4); Monocytes Absolute Auto 0.8 K/mm3 (0.1-0.6); Monocytes Percent Auto 9.3 % (2.6-8.5); Neutrophils Absolute Auto 5.3 K/mm3 (1.3-6.7); Neutrophils Percent Auto 63.5 % (45.5-73.1); Platelet Count Result 258 k/mm3 (150-375); Red Blood Count 3.35 M/mm3 (4.2-5.4); Red Cell Distribution Width 14.3 % (11.5-14.5); White Blood Count 8.3 K/mm3 (4.5-10.0)
[2024-05-03 06:38] LABS: Alanine Aminotransferase 16 U/L (6-35); Albumin Level 3.4 g/dL (3.5-5.1); Alkaline Phosphatase 86 U/L (38-126); Anion Gap 5 mmol/L (4-12); Aspartate Amino Transferase 24 U/L (14-36); Bilirubin,Total 0.4 mg/dL (0.2-1.3); Blood Urea Nitrogen 10 mg/dL (7-17); Calcium 8.7 mg/dL (8.4-10.2); Carbon Dioxide 26 mmol/L (22-30); Chloride 108 mmol/L (98-107); Estimated CRCL calculation 42 ml/min; Estimated Glomerular Filt Rate > 60; Glucose 105 mg/dL (65-110); Magnesium 1.3 mg/dL (1.6-2.3); Sodium 139 mmol/L (137-145)
--- NOTE | 2024-05-03 06:45 | PC.NURSE ---
0530- O2 on at 3L, reduced to 1L. 0646-Spo2 99% on 1L. O2 removed at this time.
[2024-05-03 08:00] VITALS: O2SAT 98
[2024-05-03 08:03] LABS: Glucose Point of Care 93 mg/dl (65-105)
[2024-05-03] MEDS: DOXYCYCLINE 100 MG/NS 100 ML 100 MG/100 ML BAG IVPB ×2 (08:46→20:45)
[2024-05-03] MEDS: lisinopriL 5 MG TABLET PO (08:47)
[2024-05-03] MEDS: oxyBUTYnin CHLORIDE 5 MG TABLET PO ×2 (08:47→16:41)
[2024-05-03] MEDS: SERTRALINE HCL 50 MG TABLET 100 MG PO (08:47)
[2024-05-03] MEDS: guaiFENesin 12 HR 600 MG TABCR 1200 MG PO ×2 (08:47→20:44)
[2024-05-03] MEDS: ENOXAPARIN 40 MG/0.4 ML SYRINGE SUB-Q (08:47)
[2024-05-03] MEDS: PANTOPRAZOLE 40 MG TABLET PO (08:47)
[2024-05-03] MEDS: amLODIPine BESYLATE 10 MG TABLET PO (08:47)
[2024-05-03] MEDS: MAGNESIUM SULF 2 GM/WATER 50ML 2 GM/50 ML BAG IVPB (08:55)
[2024-05-03 11:28] LABS: Glucose Point of Care 136 mg/dl (65-105)
--- NOTE | 2024-05-03 11:50 | P.PNIM_ITS ---
Progress Note: A&P Assessment and Plan (1) Hypoxic respiratory failure: Code(s): J96.91 - Respiratory failure, unspecified with hypoxia Status: Acute (2) Pneumonia: Code(s): J18.9 - Pneumonia, unspecified organism Status: Acute Plan This is a pleasant 69-year-old female presenting ED with chief complaint of fevers and shortness of breath. Patient developed a cough 3 weeks ago. She had been doing better and then got acutely worse few days ago. Now she is short of breath, has a productive cough and fevers. 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 Evaluation in the ED showed vitals were stable except for hypoxia he chest x-ray showed this is versus bibasilar pneumonia. WBC normal is 8.7 hemoglobin 11.3 hematocrit 34.1 chemistry panel was unremarkable better glycemia 187. Lactic acid was 1.3. Influenza RSV and COVID was negative. ABG 7.45/34/59/23. She has been started on ceftriaxone and doxycycline for pneumonia. Urine antigens will be ordered. Continue oxygen supplementation. Likely secondary to pneumonia. Taper oxygen as tolerated and now she is off oxygen. Still has significant cough will start steroid Hypothyroidism Hyperlipidemia Type 2 diabetes on oral hypoglycemic agent at home DVT prophylaxis Lovenox Code status full code Subjective Date/time seen: 05/03/24 11:50 Interval history: No overnight events. Still has cough. She is off oxygen this a.m.. Feels overall better. Review of Systems Review of Systems: All systems reviewed & are unremarkable except as noted in HPI and below Exam Narrative: APPEARANCE: well-appearingAcute distress Head: atraumatic. EYES: EOMI, NOSE: Atraumatic NECK: Trachea midline RESPIRATORY: Diminished breath sounds bilaterally no respiratory distress CARDIOVASCULAR: Regular rate and rhythm, no peripheral edema ABDOMINAL: Non-distended soft nontender MUSCULOSKELETAl: No obvious deformities NEURO: Alert. Moving 4/4 extremities SKIN:: Warm, dry. Normal color PSYCHIATRIC: Normal affect Objective Data Vital Signs Vital Signs: Vital Signs - 24 hr 05/02/24 13:46 05/02/24 22:00 05/03/24 06:00 Temperature 98 F 97.9 F 97.5 F L Pulse Rate 76 74 87 Respiratory Rate 16 18 18 Blood Pressure 104/51 L 111/61 112/64 Pulse Oximetry 96 98 98 Oxygen Delivery 05/03/24 08:00 Temperature Pulse Rate Respiratory Rate Blood Pressure Pulse Oximetry 98 Oxygen Delivery Room Air Intake/Output Intake/Output: Intake & Output 04/30/24 05/01/24 05/02/24 05/03/24 23:59 23:59 23:59 23:59 Intake Total 2940 2788 790 Output Total 500 Balance 2940 2288 790 Meds/Results Medications: Active Medications Generic Name Dose Route Start Last Admin Trade Name Freq PRN Reason Stop Dose Admin Acetaminophen 650 mg 05/01/24 20:44 05/02/24 12:06 Acetaminophen 325 Mg Tablet PO 650 mg Q6H PRN Administration Mild Pain (1-3) or Fever Albuterol 2 puff 05/01/24 20:44 05/02/24 05:27 Albuterol Sulfate (*Sp) Aerosol 1 Puff INHALATION 2 puff QIDRT PRN Administration Shortness Of Breath Amlodipine Besylate 10 mg 05/02/24 09:00 05/03/24 08:47 Amlodipine Besylate 10 Mg Tablet PO 10 mg DAILY STEFANIE Administration Benzonatate 100 mg 05/02/24 10:52 05/03/24 08:47 Benzonatate 100 Mg Capsule PO 100 mg TID PRN Administration Cough Dextrose 12.5 gm 05/01/24 15:08 Dextrose 50% 25 Gm/50 Ml Syringe IV PUSH PRN PRN Hypoglycemia Protocol Enoxaparin Sodium 40 mg 05/01/24 13:15 05/03/24 08:47 Enoxaparin 40 Mg/0.4 Ml Syringe SUB-Q 40 mg DAILY STEFANIE Administration Glucagon 1 mg 05/01/24 15:08 Glucagon For Inj 1 Mg Vial IM PRN PRN Hypoglycemia Protocol Glucose 15 gm 05/01/24 15:08 Glucose Oral Gel 15 Gm Of Glucse In 37.5 Gm Tube PO PRN PRN Hypoglycemia Protocol Guaifenesin 1,200 mg 05/01/24 21:00 05/03/24 08:47 Guaifenesin 12 Hr 600 Mg Tabcr PO 1,200 mg Q12HR STEFANIE Administration Guaifenesin/Codeine Phosphate 10 ml 05/02/24 15:06 05/03/24 08:55 Guaifenesin/Codeine (*Crx) 200/20 Mg 10 Ml Syrup PO 10 ml Q4H PRN Administration Cough Ceftriaxone Sodium 1 gm in 50 mls @ 100 mls/hr 05/02/24 12:00 05/02/24 12:48 Rocephin 1 Gm/Ns 50 Ml IVPB Infused Q24H STEFANIE Infusion Doxycycline Hyclate 100 mg in 100 mls @ 100 mls/hr 05/01/24 21:00 05/03/24 08:46 Vibramycin 100 Mg/Ns 100 Ml IVPB 100 mls/hr Q12H STEFANIE Administration Dextrose 1,000 mls @ 100 mls/hr 05/01/24 15:08 Dextrose 5% 1,000 Ml IVPB PRN PRN Hypoglycemia Protocol Insulin Aspart 2 - 5 units 05/01/24 17:00 05/03/24 11:31 Insulin Aspart (*Bkc) 100 Units/Ml SUB-Q Not Given TIDWM STEFANIE Protocol Insulin Aspart 1 - 2 units 05/01/24 21:00 05/02/24 21:56 Insulin Aspart (*Bkc) 100 Units/Ml SUB-Q Not Given HS STEFANIE Protocol Levothyroxine Sodium 75 mcg 05/02/24 06:30 05/03/24 05:33 Levothyroxine Sodium 75 Mcg Tablet PO 75 mcg DAILY@0630 STEFANIE Administration Lisinopril 5 mg 05/02/24 09:00 05/03/24 08:47 Lisinopril 5 Mg Tablet PO 5 mg DAILY STEFANIE Administration Oxybutynin Chloride 5 mg 05/01/24 17:00 05/03/24 08:47 Oxybutynin Chloride 5 Mg Tablet PO 5 mg BID STEFANIE Administration Pantoprazole Sodium 40 mg 05/02/24 09:00 05/03/24 08:47 Pantoprazole 40 Mg Tablet PO 40 mg QAM STEFANIE Administration Rosuvastatin Calcium 20 mg 05/01/24 17:00 05/02/24 17:34 Rosuvastatin 20 Mg Tablet PO 20 mg 1700 STEFANIE Administration Sertraline HCl 100 mg 05/02/24 09:00 05/03/24 08:47 Sertraline Hcl 50 Mg Tablet PO 100 mg DAILY STEFANIE Administration Radiology Results: ITS Impressions Chest X-Ray 05/01/24 11:23 IMPRESSION: Mild bilateral lower lobe infiltrate and/or atelectasis Labs Labs: Laboratory Results - last 24 hr 05/02/24 05/02/24 05/03/24 16:32 20:34 05:43 WBC 8.3 RBC 3.35 L Hgb 10.2 L Hct 31.6 L MCV 94.3 MCH 30.4 MCHC 32.3 RDW 14.3 Plt Count 258 MPV 9.4 Immature Gran % (Auto) 1.2 H Neut % (Auto) 63.5 Lymph % (Auto) 23.2 [place] % (Auto) 9.3 H Eos % (Auto) 2.3 Baso % (Auto) 0.5 Lymph # (Auto) 1.93 [place] # (Auto) 0.8 H Eos # (Auto) 0.2 Baso # (Auto) 0.0 Abs Immat Gran (auto) 0.10 H Absolute Neuts (auto) 5.3 Absolute Nucleated RBC 0.000 Nucleated RBC % 0.0 Sodium 139 Potassium 4.0 Chloride 108 H Carbon Dioxide 26 Anion Gap 5 BUN 10 D Creatinine 0.80 Estim Creat Clear Calc 42 Estimated GFR > 60 Glucose 105 POC Capillary Glucose 86 123 H Calcium 8.7 Magnesium 1.3 L Total Bilirubin 0.4 AST 24 ALT 16 Alkaline Phosphatase 86 Total Protein 6.0 L Albumin 3.4 L 05/03/24 05/03/24 07:47 11:18 WBC RBC Hgb Hct MCV MCH MCHC RDW Plt Count MPV Immature Gran % (Auto) Neut % (Auto) Lymph % (Auto) [place] % (Auto) Eos % (Auto) Baso % (Auto) Lymph # (Auto) [place] # (Auto) Eos # (Auto) Baso # (Auto) Abs Immat Gran (auto) Absolute Neuts (auto) Absolute Nucleated RBC Nucleated RBC % Sodium Potassium Chloride Carbon Dioxide Anion Gap BUN Creatinine Estim Creat Clear Calc Estimated GFR Glucose POC Capillary Glucose 93 136 H Calcium Magnesium Total Bilirubin AST ALT Alkaline Phosphatase Total Protein Albumin
[2024-05-03] MEDS: predniSONE 20 MG TABLET 40 MG PO (12:39)
[2024-05-03 14:00] VITALS: BP 119/66; PULSE 83; RESP 16; TEMP 36.4; O2SAT 95
[2024-05-03 16:32] LABS: Glucose Point of Care 174 mg/dl (65-105)
[2024-05-03] MEDS: ROSUVASTATIN 20 MG TABLET PO (16:41)
[2024-05-03 20:08] VITALS: BP 125/77; PULSE 87; RESP 18; TEMP 36.9; O2SAT 94
[2024-05-03] MEDS: INSULIN ASPART (*BKC) 100 UNITS/ML SUB-Q (20:45)
[2024-05-03 21:19] LABS: Glucose Point of Care 286 mg/dl (65-105)
[2024-05-04 04:00] VITALS: BP 137/83; PULSE 79; RESP 18; TEMP 36.3; O2SAT 94
[2024-05-04] MEDS: LEVOTHYROXINE SODIUM 75 MCG TABLET PO (05:30)
[2024-05-04] MEDS: BENZONATATE 100 MG CAPSULE PO (05:30)
--- NOTE | 2024-05-04 05:30 | PC.NURSE ---
Spo2 99% on 1L. NC removed at this time. 612- Spo2 99% on RA. Pt denies at SOB or distress at this time.
[2024-05-04 06:28] LABS: Basophils Absolute Auto 0.1 K/mm3 (0.0-0.1); Basophils Percent Auto 0.5 % (0.2-1.2); Eosinophils Percent Auto 0.1 % (0-4.4); Hemoglobin 10.7 g/dL (12.0-15.0); Immature Granulocyte Absolute 0.42 K/mm3 (0.00-0.031); Immature Granulocyte Percent A 4.5 % (0-0.5); Lymphocytes Absolute Auto 1.63 K/mm3 (0.9-3.2); Lymphocytes Percent Auto 17.3 % (18.3-44.2); Mean Corpuscular HGB Conc 32.4 g/dl (32-36); Mean Corpuscular Hemoglobin 30.3 pg (26-34); Mean Corpuscular Volume 93.5 fl (80-100); Mean Platelet Volume 9.2 fl (7.4-10.4); Monocytes Absolute Auto 0.8 K/mm3 (0.1-0.6); Neutrophils Absolute Auto 6.6 K/mm3 (1.3-6.7); Neutrophils Percent Auto 69.6 % (45.5-73.1); Platelet Count Result 327 k/mm3 (150-375); Red Blood Count 3.53 M/mm3 (4.2-5.4); Red Cell Distribution Width 14.2 % (11.5-14.5); White Blood Count 9.4 K/mm3 (4.5-10.0)
[2024-05-04 06:37] LABS: Alanine Aminotransferase 15 U/L (6-35); Albumin Level 3.5 g/dL (3.5-5.1); Alkaline Phosphatase 87 U/L (38-126); Anion Gap 7 mmol/L (4-12); Aspartate Amino Transferase 21 U/L (14-36); Bilirubin,Total 0.4 mg/dL (0.2-1.3); Blood Urea Nitrogen 20 mg/dL (7-17); Calcium 9.1 mg/dL (8.4-10.2); Carbon Dioxide 24 mmol/L (22-30); Chloride 107 mmol/L (98-107); Estimated CRCL calculation 38 ml/min; Estimated Glomerular Filt Rate > 60; Glucose 143 mg/dL (65-110); Magnesium 1.8 mg/dL (1.6-2.3); Potassium 3.7 mmol/L (3.4-5.0); Sodium 138 mmol/L (137-145)
[2024-05-04 07:33] LABS: Glucose Point of Care 132 mg/dl (65-105)
[2024-05-04 07:54] VITALS: O2SAT 94
[2024-05-04] MEDS: guaiFENesin 12 HR 600 MG TABCR 1200 MG PO (08:37)
[2024-05-04] MEDS: DOXYCYCLINE 100 MG/NS 100 ML 100 MG/100 ML BAG IVPB (08:37)
[2024-05-04] MEDS: predniSONE 20 MG TABLET 40 MG PO (08:37)
[2024-05-04] MEDS: oxyBUTYnin CHLORIDE 5 MG TABLET PO (08:38)
[2024-05-04] MEDS: lisinopriL 5 MG TABLET PO (08:38)
[2024-05-04] MEDS: PANTOPRAZOLE 40 MG TABLET PO (08:38)
[2024-05-04] MEDS: amLODIPine BESYLATE 10 MG TABLET PO (08:38)
[2024-05-04] MEDS: SERTRALINE HCL 50 MG TABLET 100 MG PO (08:38)
[2024-05-04] MEDS: ENOXAPARIN 40 MG/0.4 ML SYRINGE SUB-Q (08:38)
[2024-05-04 11:29] LABS: Glucose Point of Care 321 mg/dl (65-105)
--- NOTE | 2024-05-04 11:34 | PM.DS ---
DS: Admitting Diagnosis Discharge Date 05/04/2024 Admitting Diagnosis Shortness of breath DS: Discharge Diagnosis Discharge Diagnosis (1) Hypoxic respiratory failure: Code(s): J96.91 - Respiratory failure, unspecified with hypoxia Status: Acute (2) Pneumonia: Code(s): J18.9 - Pneumonia, unspecified organism Status: Acute DS: Summary Hospital Course Hospital Course: This is a pleasant 69-year-old female presenting ED with chief complaint of fevers and shortness of breath. Patient developed a cough 3 weeks ago. She had been doing better and then got acutely worse few days ago. Now she is short of breath, has a productive cough and fevers. 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 Evaluation in the ED showed vitals were stable except for hypoxia he chest x-ray showed this is versus bibasilar pneumonia. WBC normal is 8.7 hemoglobin 11.3 hematocrit 34.1 chemistry panel was unremarkable better glycemia 187. Lactic acid was 1.3. Influenza RSV and COVID was negative. ABG 7.45/34/59/23. She has been started on ceftriaxone and doxycycline for pneumonia. Urine antigens will be ordered. Continue oxygen supplementation. Likely secondary to pneumonia. Taper oxygen as tolerated and now she is off oxygen and remains off oxygen. Still has significant cough started on steroid which will be continued. Hypothyroidism Hyperlipidemia Type 2 diabetes on oral hypoglycemic agent at home DVT prophylaxis Lovenox Code status full code Time Spent with Patient Time attestation: Total time spent providing and/or coordinating discharge services: Exam Narrative: APPEARANCE: well-appearingAcute distress Head: atraumatic. EYES: EOMI, NOSE: Atraumatic NECK: Trachea midline RESPIRATORY: Diminished breath sounds bilaterally no respiratory distress CARDIOVASCULAR: Regular rate and rhythm, no peripheral edema ABDOMINAL: Non-distended soft nontender MUSCULOSKELETAl: No obvious deformities NEURO: Alert. Moving 4/4 extremities SKIN:: Warm, dry. Normal color PSYCHIATRIC: Normal affect DS: Data Data Completed and Pending Labs on day of discharge: Labs from last 24 hours 05/04/24 05/04/24 05/04/24 11:11 07:15 05:47 WBC 9.4 RBC 3.53 L Hgb 10.7 L Hct 33.0 L MCV 93.5 MCH 30.3 MCHC 32.4 RDW 14.2 Plt Count 327 MPV 9.2 Immature Gran % (Auto) 4.5 H Neut % (Auto) 69.6 Lymph % (Auto) 17.3 L [place] % (Auto) 8.0 Eos % (Auto) 0.1 Baso % (Auto) 0.5 Lymph # (Auto) 1.63 [place] # (Auto) 0.8 H Eos # (Auto) 0.0 Baso # (Auto) 0.1 Abs Immat Gran (auto) 0.42 H Absolute Neuts (auto) 6.6 Absolute Nucleated RBC 0.000 Nucleated RBC % 0.0 Sodium 138 Potassium 3.7 Chloride 107 Carbon Dioxide 24 Anion Gap 7 BUN 20 H D Creatinine 0.90 Estim Creat Clear Calc 38 Estimated GFR > 60 Glucose 143 H POC Capillary Glucose 321 H 132 H Calcium 9.1 Magnesium 1.8 Total Bilirubin 0.4 AST 21 ALT 15 Alkaline Phosphatase 87 Total Protein 6.0 L Albumin 3.5 05/03/24 05/03/24 20:06 16:30 WBC RBC Hgb Hct MCV MCH MCHC RDW Plt Count MPV Immature Gran % (Auto) Neut % (Auto) Lymph % (Auto) [place] % (Auto) Eos % (Auto) Baso % (Auto) Lymph # (Auto) [place] # (Auto) Eos # (Auto) Baso # (Auto) Abs Immat Gran (auto) Absolute Neuts (auto) Absolute Nucleated RBC Nucleated RBC % Sodium Potassium Chloride Carbon Dioxide Anion Gap BUN Creatinine Estim Creat Clear Calc Estimated GFR Glucose POC Capillary Glucose 286 H 174 H Calcium Magnesium Total Bilirubin AST ALT Alkaline Phosphatase Total Protein Albumin Preliminary micro results at discharge 05/01/24 10:36 Blood Culture - Preliminary Blood 05/01/24 10:36 Blood Culture - Preliminary Blood Imaging Radiologist's impression: ITS Impressions Chest X-Ray 05/01/24 11:23 IMPRESSION: Mild bilateral lower lobe infiltrate and/or atelectasis Discharge Plan Discharge Attending physician on discharge: Milan Meza Discharging Clinician: Milan Meza Anticipated Discharge Date/Time: 05/04/24 11:35 Patient Disposition: Home, Self-Care Activity: as tolerated Diet: heart healthy Patient Instructions: Antibiotic Form Stand Alone Forms: General Discharge Information Follow-up/Referrals: Clive,Don Daley MD [Primary Care Provider] - 1 Week Discharge Medications: New guaifenesin [Mucus Relief ER] 600 mg Tablet Extended Release 12hr 1,200 mg PO Q12HR Qty: 10 0RF benzonatate 100 mg Capsule 100 mg PO TID PRN (Reason: Cough) Qty: 30 0RF prednisone 20 mg Tablet 40 mg PO DAILY@0800 Qty: 6 0RF amoxicillin-pot clavulanate 875-125 mg tablet 1 tablet PO Q12H Qty: 8 0RF doxycycline hyclate 100 mg capsule 100 mg PO Q12H Qty: 8 0RF Continued lisinopril 5 mg tablet 5 mg PO DAILY rosuvastatin 20 mg tablet 20 mg PO 1700 sertraline 100 mg tablet 100 mg PO DAILY omeprazole 40 mg capsule,delayed release(DR/EC) 40 mg PO DAILY glimepiride 2 mg tablet 2 mg PO BID levothyroxine 75 mcg tablet 75 mcg PO DAILY amlodipine 10 mg tablet 10 mg PO DAILY metformin 1,000 mg tablet 1,000 mg PO BID oxybutynin chloride 5 mg tablet 5 mg PO BID Date of admission: 05/01/24 12:06 Primary Care Provider: Clive,Don Daley Admitting Provider: Milan Meza Attending physician on admission: Milan Meza Condition: Stable
[2024-05-04 19:08] LABS: Pneumococcal Antigen Urine NOT DETECTED
[2024-05-05 00:49] LABS: Legionella pneumophila Ag Ur NOT DETECTED
[2024-05-05 15:58] LABS: Mycoplasma IgM Antibody Titer 362 U/mL
== END 2024-05-04 12:38 | disposition home or self-care (01) | DRG 195 ==
LOC: ANHED 11:08 → ANH3MEDSUR 12:41
PROVIDERS: Admitting Provider Internal Medicine; Emergency Provider Emergency Medicine; PCP Internal Medicine; Visit Provider Internal Medicine
DX: J18.9 Pneumonia, unspecified organism (principal); I10 Essential (primary) hypertension; E11.9 Type 2 diabetes mellitus without complications; E78.5 Hyperlipidemia, unspecified; E03.9 Hypothyroidism, unspecified; K21.9 Gastro-esophageal reflux disease without esophagitis; F41.9 Anxiety disorder, unspecified; F32.A Depression, unspecified; Z20.822 Contact with and (suspected) exposure to COVID-19
CPT/HCPCS: 36415; 36600; 71046; 80053; 82805; 82948; 83036; 83605; 83735; 85018; 85025; 86738; 87040; 87449; 87637; 87899; 93005; 94640; 96365; 96375; 99285; A9270; J0696; J1650; J1815; J1885; J3475; J7030; J7512

== ENCOUNTER 2024-05-31 14:00 | Emergency (ER) | payer MEDICARE, SELFPAY ==
[2024-05-31 14:18] VITALS: BP 124/69; PULSE 101; RESP 16; TEMP 37.2; O2SAT 99
[2024-05-31 14:28] LABS: EDUAAPPEAR Clear; EDUABILI Negative (Negative); EDUABLOOD 3+ (Negative); EDUACOLOR1 Yellow; EDUAGLUCOSE Negative (Negative); EDUAKETONE Trace (Negative); EDUALEUKO 1+ (Negative); EDUANITRATE Negative (Negative); EDUAPH 5.5; EDUAPROTEIN 2+ (Negative); EDUASPGRAVITY 1.025; EDUAUROBILI 0.2
--- NOTE | 2024-05-31 15:30 | ED_ITS ---
HPI - Female Genitourinary General Chief complaint: Urogenital-Female Stated complaint: UTI Time Seen by Provider: 05/31/24 15:31 Source: patient, RN notes reviewed and old records reviewed Mode of arrival: ambulatory Limitations: no limitations History of Present Illness HPI Narrative: Patient presents with complaints of urinary frequency and burning that have been present for 3 or 4 days. She denies any fever, chills, sweats. She denies any tonya hematuria. She does report some back pain. Denies any abdominal pain. Denies any injury or trauma. Voices no other concerns or complaints at this time Related Data Home Medications ?Medication ?Instructions ?Recorded ?Confirmed ?Last Taken ?Type amlodipine 10 mg tablet 10 mg PO DAILY 06/07/22 05/31/24 04/30/24 History glimepiride 2 mg tablet 2 mg PO BID 06/07/22 05/31/24 04/30/24 History levothyroxine 75 mcg tablet 75 mcg PO DAILY 06/07/22 05/31/24 04/30/24 History metformin 1,000 mg tablet 1,000 mg PO BID 06/07/22 05/31/24 04/30/24 History omeprazole 40 mg capsule,delayed 40 mg PO DAILY 06/07/22 05/31/24 04/30/24 History release oxybutynin chloride 5 mg tablet 5 mg PO BID 06/07/22 05/31/24 04/30/24 History sertraline 100 mg tablet 100 mg PO DAILY 06/07/22 05/31/24 04/30/24 History lisinopril 5 mg tablet 5 mg PO DAILY 05/01/24 05/31/24 04/30/24 History rosuvastatin 20 mg tablet 20 mg PO 1700 05/01/24 05/31/24 04/30/24 History Allergies Allergy/AdvReac Type Severity Reaction Status Date / Time Sulfa (Sulfonamide Allergy Severe Rash Verified 05/31/24 14:36 Antibiotics) Review of Systems Review of Systems: All systems reviewed & are unremarkable except as noted in HPI and below Constitutional: Constitutional: Reports no additional constitutional complaints ENT: Reports system reviewed and no additional complaints, except as documented Cardiovascular: Cardiovascular: Reports no additional cardiovascular complaints Respiratory: Respiratory: Reports no additional respiratory complaints Gastrointestinal: Gastrointestinal: Reports no additional gastrointestinal complaints Genitourinary: Genitourinary: Reports no additional female genitourinary complaints, Reports as per HPI, Reports dysuria and Reports urinary urgency [facility] Past Medical History Medical History Anxiety Depression Diabetes type 2, controlled GERD (gastroesophageal reflux disease) Hyperlipidemia Hypertension Hypothyroidism Surgical History Surgical History History of thyroidectomy Social History Social History Smoking status: Never smoker Alcohol intake: never Substance use: never Substance use type: does not use Do You Feel Safe in your Home?: Yes Lack of Transportation: No Lack of Food: Never True Current Housing: I Have Housing Concerned About Future Housing: No Difficulty Paying Gas/Electric Bills: No Difficulty Paying for Meds: No Currently Unemployed: No Education: Decline to Answer Difficulty w/ Childcare or Family Care: No Living arrangements: alone Spiritual care concerns: No Comments At the time of my signature, I reviewed and agree with the nursing past medical, surgical, social, and family history. There is no relevant family history pertinent to the patient complaint. Exam Const: General: cooperative, no acute distress, alert and awake Orientation/consciousness: oriented to person, oriented to place and oriented to time HENMT: Head: normal to inspection Resp: Effort & Inspection: normal respiratory effort and able to speak in complete sentences Auscultation: clear to auscultation bilaterally, no crackles, no rales, no rhonchi and no wheezes Cardio: Palpation: normal PMI Rate: regular rate Rhythm: regular rhythm Heart sounds: S1 normal heart sound present and S2 normal heart sound present : General: Yes bladder normal to palpation and Yes no CVA tenderness Neuro: General: oriented to person, oriented to place and oriented to time Cranial nerves: Yes CN's II-XII intact bilaterally Psych: Appearance: grossly normal Thought process: Normal thought process present Insight: Good insight present (Psych) Judgement: Good judgement present (Psych) Course Course Level of Care: Express Care Visit Vital Signs Vital signs: Vital Signs Temperature 98.9 F 05/31/24 14:18 Pulse Rate 101 H 05/31/24 14:18 Respiratory Rate 16 05/31/24 14:18 Blood Pressure 124/69 05/31/24 14:18 Pulse Oximetry 99 05/31/24 14:18 Oxygen Delivery Room Air 05/31/24 14:18 Temperature 98.9 F 05/31/24 14:18 Pulse Rate 101 H 05/31/24 14:18 Respiratory Rate 16 05/31/24 14:18 Blood Pressure 124/69 05/31/24 14:18 Pulse Oximetry 99 05/31/24 14:18 Oxygen Delivery Room Air 05/31/24 14:18 Reviewed MDM - Female Genitourinary MDM Narrative Medical decision making narrative: UA concerning for UTI. Culture pending. Start Macrobid. Next para Discharge instructions reviewed with patient, as well as provided in writing per nursing staff. The instructions also include specific and strict return/GO TO THE ER as well as f/u information. All questions have been answered, and the patient deny any further questions with discharge and discharge plan. Some parts of this dictation were generated by voice recognition software and may contain typographical and/or grammatical inaccuracies. Differential Diagnosis Differential diagnosis: Likely urinary tract infection and cystitis Lab Data Labs: Lab Results 05/31/24 Range/Units 14:23 POC Urine Color Yellow POC Urine Clarity Clear POC Urine pH 5.5 POC Ur Specif Martin 1.025 POC Urine Protein 2+ (Negative) POC Ur Glucose (UA) Negative (Negative) POC Urine Ketones Trace (Negative) POC Urine Blood 3+ (Negative) POC Urine Nitrite Negative (Negative) POC Urine Bilirubin Negative (Negative) POC Urine Urobilinogen 0.2 POC U Leukocyte Esteras 1+ (Negative) Discharge Plan Discharge Clinical Impression: Urinary tract infection Qualifiers: Urinary tract infection type: site unspecified Hematuria presence: with hematuria Qualified Code(s): N39.0 - Urinary tract infection, site not specified Patient Disposition: Home, Self-Care Condition: Stable Instructions: Antibiotic Form, Urinary Tract Infection in Women (ED) Additional Instructions: Take medications as prescribed. Follow-up with primary care provider. Emergency department for new or worse symptoms Patient Language: Guyanese Prescriptions: New nitrofurantoin monohyd/m-cryst [Macrobid] 100 mg capsule 100 mg PO Q12H 5 Days Qty: 10 0RF Rx Instructions: must administer with a meal/food No Action lisinopril 5 mg tablet 5 mg PO DAILY rosuvastatin 20 mg tablet 20 mg PO 1700 sertraline 100 mg tablet 100 mg PO DAILY omeprazole 40 mg capsule,delayed release(DR/EC) 40 mg PO DAILY glimepiride 2 mg tablet 2 mg PO BID levothyroxine 75 mcg tablet 75 mcg PO DAILY amlodipine 10 mg tablet 10 mg PO DAILY metformin 1,000 mg tablet 1,000 mg PO BID oxybutynin chloride 5 mg tablet 5 mg PO BID Follow-up/Referrals: Clive,Don Daley MD [Primary Care Provider] - 2 Weeks Time of Disposition: 15:38
== END 2024-05-31 15:47 | disposition home or self-care (01) ==
PROVIDERS: Emergency Provider Nurse Practitioner Family; PCP Internal Medicine
DX: N39.0 Urinary tract infection, site not specified (principal); E11.9 Type 2 diabetes mellitus without complications; I10 Essential (primary) hypertension; E03.9 Hypothyroidism, unspecified; Z79.899 Other long term (current) drug therapy; Z79.84 Long term (current) use of oral hypoglycemic drugs; E78.5 Hyperlipidemia, unspecified
CPT/HCPCS: 81003; 87077; 87086; 87186; 99213; G0463

== ENCOUNTER 2024-11-29 14:52 | Emergency (ER) | payer MEDICARE, SELFPAY ==
--- NOTE | 2024-11-29 14:58 | ED.FEMALEGU ---
HPI - Female Genitourinary General Chief complaint: Urogenital-Female Stated complaint: urinary irritation Time Seen by Provider: 11/29/24 14:58 Source: patient Mode of arrival: ambulatory Limitations: no limitations History of Present Illness HPI Narrative: Alba is a 61-year-old female patient presenting to the clinic today with complaints of possible UTI x1 day. She reports lower abdominal pain, urinary frequency, and urinary urgency. Denies any malodorous urine or burning with urination. Denies any fevers, chills, or body aches. Denies any back pain. Denies any history of kidney stones. Related Data Home Medications ?Medication ?Instructions ?Recorded ?Confirmed ?Last Taken ?Type amlodipine 10 mg tablet 10 mg PO DAILY 06/07/22 05/31/24 04/30/24 History glimepiride 2 mg tablet 2 mg PO BID 06/07/22 05/31/24 04/30/24 History levothyroxine 75 mcg tablet 75 mcg PO DAILY 06/07/22 05/31/24 04/30/24 History metformin 1,000 mg tablet 1,000 mg PO BID 06/07/22 05/31/24 04/30/24 History omeprazole 40 mg capsule,delayed 40 mg PO DAILY 06/07/22 05/31/24 04/30/24 History release oxybutynin chloride 5 mg tablet 5 mg PO BID 06/07/22 05/31/24 04/30/24 History sertraline 100 mg tablet 100 mg PO DAILY 06/07/22 05/31/24 04/30/24 History lisinopril 5 mg tablet 5 mg PO DAILY 05/01/24 05/31/24 04/30/24 History rosuvastatin 20 mg tablet 20 mg PO 1700 05/01/24 05/31/24 04/30/24 History Allergies Allergy/AdvReac Type Severity Reaction Status Date / Time Sulfa (Sulfonamide Allergy Severe Rash Verified 11/29/24 15:05 Antibiotics) Review of Systems Review of Systems: Pertinent positives per HPI. Patient denies any fever, chills, rash, headache, visual changes, dizziness, cough, shortness of breath, chest pain, palpitations, nausea, vomiting, diarrhea, constipation, abdominal pain. [facility] Past Medical History Medical History Diabetes type 2, controlled Depression Anxiety Hypothyroidism GERD (gastroesophageal reflux disease) Hypertension Hyperlipidemia Surgical History Surgical History History of thyroidectomy Social History Social History Smoking status: Never smoker Alcohol intake: never Substance use: never Substance use type: does not use Do You Feel Safe in your Home?: Yes Lack of Transportation: No Lack of Food: Never True Current Housing: I Have Housing Concerned About Future Housing: No Difficulty Paying Gas/Electric Bills: No Difficulty Paying for Meds: No Currently Unemployed: No Education: Decline to Answer Difficulty w/ Childcare or Family Care: No Living arrangements: alone Spiritual care concerns: No Comments At the time of my signature, I reviewed and agree with the nursing past medical, surgical, social, and family history. There is no relevant family history pertinent to the patient complaint. Exam Narrative: General: Well-developed, well nourished, in no apparent distress. Head: Normocephalic, atraumatic. Cardio: Regular rate and rhythm, s1 and s2 normal, no murmur appreciated. Resp: Clear to auscultation bilaterally, no rhonchi, rales, wheezing or rubs. Abdomen: Soft, pliable, bowel sounds present in all quadrants, suprapubic tender to palpation, no organomegly, no CVAT tenderness. Course Course Emergency Course: Portions of this record may have been created with voice recognition software. Level of Care: Express Care Visit Vital Signs Vital signs: Vital Signs Temperature 37.0 C 11/29/24 15:05 Pulse Rate 117 H 11/29/24 15:05 Respiratory Rate 16 11/29/24 15:05 Blood Pressure 110/80 11/29/24 15:05 Pulse Oximetry 100 11/29/24 15:05 Oxygen Delivery Room Air 11/29/24 15:05 Temperature 37.0 C 11/29/24 15:05 Pulse Rate 117 H 11/29/24 15:05 Respiratory Rate 16 11/29/24 15:05 Blood Pressure 110/80 11/29/24 15:05 Pulse Oximetry 100 11/29/24 15:05 Oxygen Delivery Room Air 11/29/24 15:05 Vital signs reviewed MDM - Female Genitourinary MDM Narrative Medical decision making narrative: At the time of visit patient is resting comfortably on the exam table. Patient appears to be nontoxic. Labs: Urinalysis show 2+ blood and 1+ bilirubin., we will send urine for culture Plan: I suspect patient has UTI symptoms. We will send urine for culture. She may take azo for symptoms. Follow-up with PCP in 1 week if symptoms persist to rule out other etiology such as bladder CA Supportive measures were discussed with the patient and they voiced understanding discharge instructions and agrees to treatment plan. Return precautions reviewed Differential Diagnosis Differential diagnosis: Likely urinary tract infection and cystitis Discharge Plan Discharge Clinical Impression: Symptoms of urinary tract infection Patient Disposition: Home Condition: Stable Instructions: Antibiotic Form, Urinary Tract Infection in Women (ED) Additional Instructions: Urinalysis shows 2+ blood and bili. No leukocytes or nitrates. We will send urine for culture. This will come back in 2 days in if it is positive we will contact you and send you in a prescription for antibiotics May continue to take azo Increase fluids and stay well hydrated Wipe front to back. May use wet wipes. Avoid tub baths If sexually active- pee before and after intercourse. Wear cotton panties Avoid tight clothing up against the genitals Follow up with your PCP in 1 week if symptoms persist. Patient Language: Syriac Prescriptions: No Action lisinopril 5 mg tablet 5 mg PO DAILY rosuvastatin 20 mg tablet 20 mg PO 1700 sertraline 100 mg tablet 100 mg PO DAILY omeprazole 40 mg capsule,delayed release(DR/EC) 40 mg PO DAILY glimepiride 2 mg tablet 2 mg PO BID levothyroxine 75 mcg tablet 75 mcg PO DAILY amlodipine 10 mg tablet 10 mg PO DAILY metformin 1,000 mg tablet 1,000 mg PO BID oxybutynin chloride 5 mg tablet 5 mg PO BID Follow-up/Referrals: Clive,Don Daley MD [Primary Care Provider] - Time of Disposition: 15:13 Quality NIHSS Nursing Documentation ED NIHSS nursing documentation: reviewed/agree
[2024-11-29 15:05] VITALS: BP 110/80; PULSE 117; RESP 16; TEMP 37; O2SAT 100
[2024-11-29 15:28] LABS: EDUAAPPEAR Clear; EDUABILI 1+ (Negative); EDUABLOOD 2+ (Negative); EDUACOLOR1 Yellow; EDUAGLUCOSE Negative (Negative); EDUAKETONE Negative (Negative); EDUALEUKO Negative (Negative); EDUANITRATE Negative (Negative); EDUAPROTEIN Negative (Negative)
== END 2024-11-29 15:22 | disposition home or self-care (01) ==
PROVIDERS: Emergency Provider Nurse Practitioner Family; PCP Internal Medicine
DX: R35.0 Frequency of micturition (principal); R39.15 Urgency of urination; R10.30 Lower abdominal pain, unspecified; E11.9 Type 2 diabetes mellitus without complications; Z79.84 Long term (current) use of oral hypoglycemic drugs; I10 Essential (primary) hypertension; E89.0 Postprocedural hypothyroidism; E78.5 Hyperlipidemia, unspecified; F41.9 Anxiety disorder, unspecified; F32.A Depression, unspecified
CPT/HCPCS: 81003; 87086; 99213; G0463

== ENCOUNTER 2025-02-06 03:34 | Observation (INO) | payer MEDICARE, SELFPAY ==
[2025-02-06] VITALS (7 sets, daily range): BP systolic 103–143; BP diastolic 52–75; PULSE 70–88; RESP 12–18; TEMP 36.2–37; O2SAT 91–96; BMI 26.6
--- NOTE | ~2025-02-06 | XR_ITS ---
EXAMINATION: XR ankle LT min 3V DATE: 02/06/2025 04:10 INDICATION: Left ankle sprain TECHNIQUE: Anteroposterior, mortise, and lateral views of the left ankle were obtained. COMPARISON: None. FINDINGS: There is a minimally displaced oblique fracture through the distal fibula with a fracture plane exiting medially at the level of the tibiotalar joint. Alignment remains essentially anatomic. No other fracture identified. Specifically the medial and posterior malleoli as well as the talar dome are intact. Ankle mortise remains congruent.Mild osteoarthritis at the first metatarsophalangeal and a few of the profiled tarsometatarsal and interphalangeal joints. Soft tissue swelling overlying the lateral malleolus. No ankle joint effusion. IMPRESSION: 1. Minimally displaced oblique fracture of the distal left fibula consistent with a Cortez type B injury pattern. Reviewed, dictated and finalized at location A. IMPRESSION: 1. Minimally displaced oblique fracture of the distal left fibula consistent wi th a Cortez type B injury pattern.
--- NOTE | ~2025-02-06 | XR_ITS ---
EXAMINATION: XR ankle RT min 3V DATE: 02/06/2025 04:10 INDICATION: Right ankle sprain TECHNIQUE: Anteroposterior, mortise, and lateral views of the right ankle were obtained. COMPARISON: None. FINDINGS: There is an oblique fracture through the distal fibula with a fracture plane exiting medially at the level of the tibiotalar joint. One cortical width posterolateral displacement. No other fracture identified. Specifically the medial and posterior malleoli as well as the talar dome are intact. Ankle mortise remains congruent. Small Achilles and plantar calcaneal spurs. 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 Soft tissue swelling overlying the lateral malleolus. No ankle joint effusion. IMPRESSION: 1. Minimally displaced oblique fracture of the distal left fibula consistent with a Cortez type B injury pattern. Reviewed, dictated and finalized at location A. IMPRESSION: 1. Minimally displaced oblique fracture of the distal left fibula consistent wi th a Cortez type B injury pattern.
--- NOTE | 2025-02-06 03:43 | ECG_ITS ---
Test Date: 2025-02-06 03:38:46 Measurements Intervals [employer] Rate: 88 P: 50 IN: 167 QRS: 1 QRSD: 97 T: 75 QT: 359 QTc: 435 Interpretive Statements SINUS RHYTHM POOR R-WAVE PROGRESSION NONSPECIFIC T-WAVE CHANGES Compared to ECG 05/01/2024 10:30:11 NO SIGNIFICANT CHANGES Electronically Signed On 02-06-2025 10:53:23 CDT by Ethan Puentes M.D.
[2025-02-06 03:59] LABS: Add Urine Microscopic? NO; Appearance Urine Clear (Clear); Glucose Urine UA 3+ mg/dL (Negative); Leukocyte Esterase Ur Negative LEU/UL (Negative); Nitrate Urine Negative (Negative); Specific Grav Ur 1.021 (1.001-1.035)
--- NOTE | 2025-02-06 04:06 | ED.GENADULT ---
HPI - General Adult General Chief complaint: Weakness Stated complaint: BLE edema/weakness History of Present Illness HPI narrative: Patient is a 61-year-old female who presents emergency department this morning via EMS due to weakness and inability to ambulate. Patient states that yesterday morning she was getting on a bus and stepped wrong causing both of her ankles to wall. Patient did not think much of it on, however, this morning she woke up and she was trying to go to the bathroom and could not put weight on her bilateral feet. He denies hitting her head and denies any additional injuries from the fall. Related Data Home Medications ?Medication ?Instructions ?Recorded ?Confirmed ?Last Taken ?Type amlodipine 10 mg tablet 10 mg PO DAILY 06/07/22 05/31/24 04/30/24 History glimepiride 2 mg tablet 2 mg PO BID 06/07/22 05/31/24 04/30/24 History levothyroxine 75 mcg tablet 75 mcg PO DAILY 06/07/22 05/31/24 04/30/24 History metformin 1,000 mg tablet 1,000 mg PO BID 06/07/22 05/31/24 04/30/24 History omeprazole 40 mg capsule,delayed 40 mg PO DAILY 06/07/22 05/31/24 04/30/24 History release oxybutynin chloride 5 mg tablet 5 mg PO BID 06/07/22 05/31/24 04/30/24 History sertraline 100 mg tablet 100 mg PO DAILY 06/07/22 05/31/24 04/30/24 History lisinopril 5 mg tablet 5 mg PO DAILY 05/01/24 05/31/24 04/30/24 History rosuvastatin 20 mg tablet 20 mg PO 1700 05/01/24 05/31/24 04/30/24 History Allergies Allergy/AdvReac Type Severity Reaction Status Date / Time Sulfa (Sulfonamide Allergy Severe Rash Verified 11/29/24 15:05 Antibiotics) Review of Systems Review of Systems: All systems are reviewed and are negative unless stated otherwise in the HPI. [facility] Past Medical History Medical History Diabetes type 2, controlled Depression Anxiety Hypothyroidism GERD (gastroesophageal reflux disease) Hypertension Hyperlipidemia Surgical History Surgical History History of thyroidectomy Social History Social History Smoking status: Never smoker Alcohol intake: never Substance use: never Substance use type: does not use Do You Feel Safe in your Home?: Yes Lack of Transportation: No Lack of Food: Never True Current Housing: I Have Housing Concerned About Future Housing: No Difficulty Paying Gas/Electric Bills: No Difficulty Paying for Meds: No Currently Unemployed: No Education: Decline to Answer Difficulty w/ Childcare or Family Care: No Living arrangements: alone Spiritual care concerns: No Exam Narrative: General: Alert, awake, afebrile, in no acute distress. HEENT: PERRL, no rhinorrhea, no post nasal drip, oropharynx clear. Neck: Trachea midline, no JVD, no lymphadenopathy. Cardiovascular: Regular rate and rhythm, no murmurs, rubs or gallops, no peripheral edema. Respiratory: Clear to auscultation bilaterally, no tachypnea, no wheezing, no rhonchi, no rubs, no respiratory distress. Abdomen: Soft, nontender, nondistended, no rebound, no guarding, no peritoneal signs. Musculoskeletal: Bilateral ankle swelling and ecchymosis, otherwise intact PT and DP pulses. Skin: No rashes or petechia, no signs of infection. Psychiatric: Alert and oriented, normal behavior and judgment for situation. Neurological: Alert and oriented to person, place, and time. Follows all commands. No focal deficits, speech is clear and fluent. Course Vital Signs Vital signs: Vital Signs Temperature 97.6 F 02/06/25 03:35 Pulse Rate 88 02/06/25 03:35 Respiratory Rate 18 02/06/25 03:35 Blood Pressure 143/75 H 02/06/25 03:35 Pulse Oximetry 95 02/06/25 03:35 Oxygen Delivery Room Air 02/06/25 03:35 Temperature 97.6 F 02/06/25 03:35 Pulse Rate 88 02/06/25 03:35 Respiratory Rate 18 02/06/25 03:35 Blood Pressure 143/75 H 02/06/25 03:35 Pulse Oximetry 95 02/06/25 03:35 Oxygen Delivery Room Air 02/06/25 03:35 Medical Decision Making MDM Narrative Medical decision making narrative: The patient was evaluated by myself in the emergency department. History is obtained from patient who is an independent historian and physical exam was performed. External medical records were reviewed at this time. IV was established and pertinent tests were ordered. Patient was administered 4 mg of IV morphine for pain and 4 mg IV Zofran for nausea. Laboratory results obtained revealing no acute process. Urinalysis unremarkable. Imaging studies obtained included bilateral ankle x-rays which was independently interpreted by me revealing bilateral nondisplaced lateral malleoli fractures, which is pending final radiology interpretation. At this time patient was placed in bilateral posterior short-leg splint with stirrup. She was made NPO pending orthopedic consultation and started on maintenance fluids at a rate of 100 cc/hour. Differential diagnosis considerations include fractures, dislocation, ankle sprain. Comorbidities impacting this visit include none. I have evaluated and discussed social determinants of health with the patient that could potentially impact subsequent diagnosis and treatment plans. On repeat assessment of the patient, reevaluation revealed that the patient is doing well and is in no acute distress. Patient symptoms have improved since she arrived to our emergency department. Repeat vital signs were all reviewed and noted to be stable. Differential diagnosis and treatment plan were discussed with the patient at bedside. Patient agrees with discussion and after shared medical decision making agrees with admission. All questions were answered to the patient's satisfaction. Case was discussed with the on-call attending surgeon Dr. Workman at 0440 and he accepted consultation. Case discussed with the on-call hospitalist Dr. Colby at 0500 and he accepted admission. Vital Signs Vital Signs: Vital Signs Temperature 97.6 F 02/06/25 03:35 Pulse Rate 88 02/06/25 03:35 Respiratory Rate 18 02/06/25 03:35 Blood Pressure 143/75 H 02/06/25 03:35 Pulse Oximetry 95 02/06/25 03:35 Oxygen Delivery Room Air 02/06/25 03:35 Temperature 97.6 F 02/06/25 03:35 Pulse Rate 88 02/06/25 03:35 Respiratory Rate 18 02/06/25 03:35 Blood Pressure 143/75 H 02/06/25 03:35 Pulse Oximetry 95 02/06/25 03:35 Oxygen Delivery Room Air 02/06/25 03:35 Lab Data 02/06/25 04:12 02/06/25 04:12 Labs: Lab Results 02/06/25 02/06/25 Range/Units 03:53 04:12 WBC 8.8 (4.5-10.0) K/mm3 RBC 3.99 L (4.2-5.4) M/mm3 Hgb 12.4 (12.0-15.0) g/dL Hct 38.6 (37.0-47.0) % MCV 96.7 (80-100) fl MCH 31.1 (26-34) pg MCHC 32.1 (32-36) g/dl RDW 13.3 (11.5-14.5) % Plt Count 210 (150-375) k/mm3 MPV 9.6 (7.4-10.4) fl Immature Gran % (Auto) 0.3 (0-0.5) % Neut % (Auto) 67.9 (45.5-73.1) % Lymph % (Auto) 19.9 (18.3-44.2) % [place] % (Auto) 8.9 H (2.6-8.5) % Eos % (Auto) 2.7 (0-4.4) % Baso % (Auto) 0.3 (0.2-1.2) % Lymph # (Auto) 1.76 (0.9-3.2) K/mm3 [place] # (Auto) 0.8 H (0.1-0.6) K/mm3 Eos # (Auto) 0.2 (0-0.3) K/mm3 Baso # (Auto) 0.0 (0.0-0.1) K/mm3 Abs Immat Gran (auto) 0.03 (0.00-0.031) K/mm3 Absolute Neuts (auto) 6.0 (1.3-6.7) K/mm3 Absolute Nucleated RBC 0.000 (0.0-0.012) K/mm3 Nucleated RBC % 0.0 (0.0-0.2) % Sodium 138 (137-145) mmol/L Potassium 4.1 (3.4-5.0) mmol/L Chloride 102 (98-107) mmol/L Carbon Dioxide 28 (22-30) mmol/L Anion Gap 8 (4-12) mmol/L BUN 29 H (7-17) mg/dL Creatinine 1.00 (0.7-1.0) mg/dL Estim Creat Clear Calc 39 ml/min Estimated GFR 55 L (59 - ) Glucose 138 H (65-110) mg/dL Calcium 9.6 (8.4-10.2) mg/dL Magnesium 1.8 (1.6-2.3) mg/dL Total Bilirubin 0.5 (0.2-1.3) mg/dL AST 28 (14-36) U/L ALT 21 (6-35) U/L Alkaline Phosphatase 92 (38-126) U/L Total Protein 7.2 (6.3-8.2) g/dL Albumin 4.3 (3.5-5.1) g/dL Urine Color Yellow (Yellow) Urine Appearance Clear (Clear) Urine pH 7.0 (5.0-9.0) Ur Specific [place] 1.021 (1.001-1.035) Urine Protein Negative (Negative) mg/dL Urine Glucose (UA) 3+ H (Negative) mg/dL Urine Ketones Negative (Negative) mg/dL Ur Blood (Man) Negative (Negative) Urine Nitrate Negative (Negative) Urine Bilirubin Negative (Negative) Urine Urobilinogen 0.2 (<2.0) mg/dL Leukocyte Esterase Rfl Negative (Negative) MYRA/UL Discharge Plan Discharge Clinical Impression: Lateral malleolar fracture, Ankle fracture, right, Ankle fracture, left Patient Disposition: Still a Patient Condition: Improved Patient Language: Latvian Prescriptions: No Action lisinopril 5 mg tablet 5 mg PO DAILY rosuvastatin 20 mg tablet 20 mg PO 1700 sertraline 100 mg tablet 100 mg PO DAILY omeprazole 40 mg capsule,delayed release(DR/EC) 40 mg PO DAILY glimepiride 2 mg tablet 2 mg PO BID levothyroxine 75 mcg tablet 75 mcg PO DAILY amlodipine 10 mg tablet 10 mg PO DAILY metformin 1,000 mg tablet 1,000 mg PO BID oxybutynin chloride 5 mg tablet 5 mg PO BID Follow-up/Referrals: Clive,Don Daley MD [Primary Care Provider, Unknown] Time of Disposition: 04:46
[2025-02-06 04:17] LABS: Hematocrit 38.6 % (37.0-47.0); Hemoglobin 12.4 g/dL (12.0-15.0); Immature Granulocyte Percent A 0.3 % (0-0.5); Lymphocytes Absolute Auto 1.76 K/mm3 (0.9-3.2); Mean Corpuscular HGB Conc 32.1 g/dl (32-36); Mean Corpuscular Hemoglobin 31.1 pg (26-34); Mean Corpuscular Volume 96.7 fl (80-100); Nucleated Red Blood Cells Absolute Auto 0.000 K/mm3 (0.0-0.012); Nucleated Red Blood Cells Perc 0.0 % (0.0-0.2); Platelet Count Result 210 k/mm3 (150-375); Red Blood Count 3.99 M/mm3 (4.2-5.4); White Blood Count 8.8 K/mm3 (4.5-10.0)
[2025-02-06] MEDS: ONDANSETRON INJ 4 MG/2 ML VIAL IV PUSH (04:19)
[2025-02-06] MEDS: MORPHINE SULFATE (*CRX) 4 MG/ML INJ IV PUSH (04:19)
[2025-02-06 04:38] LABS: Alanine Aminotransferase 21 U/L (6-35); Albumin Level 4.3 g/dL (3.5-5.1); Alkaline Phosphatase 92 U/L (38-126); Anion Gap 8 mmol/L (4-12); Aspartate Amino Transferase 28 U/L (14-36); Bilirubin,Total 0.5 mg/dL (0.2-1.3); Blood Urea Nitrogen 29 mg/dL (7-17); Calcium 9.6 mg/dL (8.4-10.2); Carbon Dioxide 28 mmol/L (22-30); Chloride 102 mmol/L (98-107); Estimated CRCL calculation 39 ml/min; Estimated Glomerular Filt Rate 55; Glucose 138 mg/dL (65-110); Magnesium 1.8 mg/dL (1.6-2.3); Potassium 4.1 mmol/L (3.4-5.0); Sodium 138 mmol/L (137-145); Total Protein 7.2 g/dL (6.3-8.2)
[2025-02-06] MEDS: SODIUM CHLORIDE 0.9% IV 1,000 ML 100 ML IV CONT (05:21)
--- NOTE | 2025-02-06 05:57 | ADMGEN ---
This patient, Alba Arora, was admitted to 2 Medical Room 258-. Patient/family oriented to hospital policies and general routines including ID bracelet, bed and alarms, visiting hours, pain management, procedures, bathroom and other care routines, personal items, smoking policy, room service/diet, and visiting hours. Information on how to activate the Rapid Response Team has been discussed. Patient/Family are encouraged to report perceived risks to care and to ask questions if they do not understand what they are told or what they should do.
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
--- NOTE | 2025-02-06 07:09 | P.PNIM_ITS ---
Progress Note: A&P Assessment and Plan (1) Ankle fracture, right: Code(s): S82.891A - Other fracture of right lower leg, initial encounter for closed fracture Status: Acute Assessment and Plan: - splint applied in ED - ortho consulted - continue pain control - NPO until ortho eval (2) Ankle fracture, left: Code(s): S82.892A - Other fracture of left lower leg, initial encounter for closed fracture Status: Acute Assessment and Plan: - XR L ankle with minimally displaced fracture of the left distal fibula, Cortez B - splint applied in ED - ortho consulted - continue pain control - NPO until ortho eval (3) Diabetes type 2, controlled: Code(s): E11.9 - Type 2 diabetes mellitus without complications Status: Acute Assessment and Plan: - hold home PO glimepiride and Farxiga - low dose SSI - monitor POCT glucose - hypoglycemia protocol (4) Depression: Code(s): F32.A - Depression, unspecified Status: Acute Assessment and Plan: - continue home nortriptyline and sertraline (5) Hypothyroidism: Code(s): E03.9 - Hypothyroidism, unspecified Status: Acute Assessment and Plan: - continue home Synthroid Subjective Date/time seen: 02/06/25 07:09 Interval history: A 69-year-old female with PMH overactive bladder, depression anxiety, hypothyroidism, CKD, GERD, hyperlipidemia, hypertension, [id number]-enupnmqla diabetes mellitus presents to [facility] ER 02/05/2025 with a complaint of inability to walk and bilateral ankle pain. Patient seen and examined at bedside. Having some mild pain. R ankle worse than L. Review of Systems Review of Systems: All systems reviewed & are unremarkable except as noted in HPI and below Exam Narrative: General: NAD Eyes: EOMI ENT: neck supple Cardiovascular: Regular rate and rhythm. Cap refill <3 sec bilateral great toes Respiratory: Clear to auscultation, respirations even and unlabored on RA Gastrointestinal: Soft, non tender Genitourinary: no suprapubic tenderness Musculoskeletal: No edema. Bilateral leg splints. Skin: warm, dry Neuro: Alert. Sensation intact BLEs. Psych: Mood appropriate Objective Data Vital Signs Vital Signs: Vital Signs - 24 hr 02/06/25 03:35 02/06/25 06:00 02/06/25 06:17 Temperature 97.6 F 98.1 F Pulse Rate 88 88 Respiratory Rate 18 18 Blood Pressure 143/75 H 131/65 Pulse Oximetry 95 94 Oxygen Delivery Room Air Room Air Meds/Results Medications: Active Medications Generic Name Dose Route Start Last Admin Trade Name Freq PRN Reason Stop Dose Admin Acetaminophen 500 mg 02/06/25 06:44 Acetaminophen 500 Mg Tablet PO Q6H PRN Mild Pain (1-3) or Fever Hydrocodone Bitart/Acetaminophen 1 tab 02/06/25 06:44 Hydrocodone/Acetaminophen (*Crx) 10-325 Mg Tablet PO Q6H PRN Pain Rated 7-10 Dextrose 12.5 gm 02/06/25 06:50 Dextrose 50% 25 Gm/50 Ml Syringe IV PUSH PRN PRN Hypoglycemia Protocol Glucose 15 gm 02/06/25 06:50 Glucose Oral Gel 15 Gm Of Glucse In 37.5 Gm Tube PO PRN PRN Hypoglycemia Protocol Sodium Chloride 1,000 mls @ 100 mls/hr 02/06/25 05:05 02/06/25 05:21 Normal Saline Iv IV CONT 100 mls/hr .Q10H STEFANIE Administration Dextrose 1,000 mls @ 100 mls/hr 02/06/25 06:50 Dextrose 5% 1,000 Ml IVPB PRN PRN Hypoglycemia Protocol Levothyroxine Sodium 75 mcg 02/07/25 06:30 Levothyroxine Sodium 75 Mcg Tablet PO DAILY@0630 [facility] Morphine Sulfate 2 mg 02/06/25 06:44 Morphine Sulfate (*Crx) 2 Mg/Ml Inj IV PUSH Q4H PRN Pain Rated 7-10 Nortriptyline HCl 10 mg 02/06/25 06:41 Nortriptyline Hcl 10 Mg Capsule PO HS PRN Insomnia Pantoprazole Sodium 40 mg 02/06/25 09:00 Pantoprazole 40 Mg Tablet PO BID [facility] Rosuvastatin Calcium 20 mg 02/06/25 17:00 Rosuvastatin 20 Mg Tablet PO 1700 [facility] Sertraline HCl 100 mg 02/06/25 09:00 Sertraline Hcl 50 Mg Tablet PO DAILY [facility] Labs Labs: Laboratory Results - last 24 hr 02/06/25 02/06/25 03:53 04:12 WBC 8.8 RBC 3.99 L Hgb 12.4 Hct 38.6 MCV 96.7 MCH 31.1 MCHC 32.1 RDW 13.3 Plt Count 210 MPV 9.6 Immature Gran % (Auto) 0.3 Neut % (Auto) 67.9 Lymph % (Auto) 19.9 [place] % (Auto) 8.9 H Eos % (Auto) 2.7 Baso % (Auto) 0.3 Lymph # (Auto) 1.76 [place] # (Auto) 0.8 H Eos # (Auto) 0.2 Baso # (Auto) 0.0 Abs Immat Gran (auto) 0.03 Absolute Neuts (auto) 6.0 Absolute Nucleated RBC 0.000 Nucleated RBC % 0.0 Sodium 138 Potassium 4.1 Chloride 102 Carbon Dioxide 28 Anion Gap 8 BUN 29 H Creatinine 1.00 Estim Creat Clear Calc 39 Estimated GFR 55 L Glucose 138 H Calcium 9.6 Magnesium 1.8 Total Bilirubin 0.5 AST 28 ALT 21 Alkaline Phosphatase 92 Total Protein 7.2 Albumin 4.3 Urine Color Yellow Urine Appearance Clear Urine pH 7.0 Ur Specific [place] 1.021 Urine Protein Negative Urine Glucose (UA) 3+ H Urine Ketones Negative Ur Blood (Man) Negative Urine Nitrate Negative Urine Bilirubin Negative Urine Urobilinogen 0.2 Leukocyte Esterase Rfl Negative
[2025-02-06] MEDS: HYDROcodone/acetaminophen (*CRX) 10-325 MG TABLET 1 TAB PO ×2 (08:16→17:01)
[2025-02-06] MEDS: PANTOPRAZOLE 40 MG TABLET PO ×2 (08:17→17:02)
[2025-02-06] MEDS: SERTRALINE HCL 50 MG TABLET 100 MG PO (08:17)
[2025-02-06] MEDS: MORPHINE SULFATE (*CRX) 2 MG/ML INJ IV PUSH ×2 (10:05→19:05)
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
--- NOTE | 2025-02-06 14:01 | PCPTNOTE ---
Talking to nurse and she reports that we are waiting on boots for the patient and that they probably would not be in until Saturday according to the surgeon. Will check on patient tomorrow in case the boots do show up.
--- NOTE | 2025-02-06 14:39 | PCOTNOTE ---
Attempted OT evaluation; Per PT.: Nurse reports that we are waiting on boots for the patient and that they probably would not be in until Saturday according to the surgeon. Will check on patient tomorrow in case the boots do show up.
[2025-02-06] MEDS: ROSUVASTATIN 20 MG TABLET PO (17:01)
[2025-02-07] VITALS (8 sets, daily range): BP systolic 110–136; BP diastolic 64–71; PULSE 76–84; RESP 18; TEMP 36.4–36.8; O2SAT 92–95
[2025-02-07] MEDS: LEVOTHYROXINE SODIUM 75 MCG TABLET PO (05:33)
[2025-02-07] MEDS: HYDROcodone/acetaminophen (*CRX) 10-325 MG TABLET 1 TAB PO (05:34)
--- NOTE | 2025-02-07 08:44 | PCPTNOTE ---
Morenita RN, reports still no boots. Nursing knows they can vocera physical therapist if the boots come before 200 this afternoon and physical therapist will be back to do evaluation.
[2025-02-07] MEDS: PANTOPRAZOLE 40 MG TABLET PO ×2 (08:52→18:04)
[2025-02-07] MEDS: ASPIRIN 325 MG ENTERIC TABLET PO (08:52)
[2025-02-07] MEDS: SERTRALINE HCL 50 MG TABLET 100 MG PO (08:52)
--- NOTE | 2025-02-07 11:38 | P.PNIM_ITS ---
Progress Note: A&P Assessment and Plan (1) Ankle fracture, right: Code(s): S82.891A - Other fracture of right lower leg, initial encounter for closed fracture Status: Acute Assessment and Plan: - XR with minimally displaced oblique fracture of the distal R fibula consistent with Cortez type B injury pattern - splint applied in ED - ortho consulted - planning for nonoperative management, awaiting surgical boot to be delivered. ASA for DVT prophylaxis. - continue pain control - PT/OT when able (2) Ankle fracture, left: Code(s): S82.892A - Other fracture of left lower leg, initial encounter for closed fracture Status: Acute Assessment and Plan: - XR with minimally displaced oblique fracture of the distal R fibula consistent with Cortez type B injury pattern - splint applied in ED - ortho consulted - planning for nonoperative management, awaiting surgical boot to be delivered - continue pain control - PT/OT when able (3) Diabetes type 2, controlled: Code(s): E11.9 - Type 2 diabetes mellitus without complications Status: Acute Assessment and Plan: - hold home PO glimepiride and Farxiga - low dose SSI - monitor POCT glucose - hypoglycemia protocol (4) Depression: Code(s): F32.A - Depression, unspecified Status: Acute Assessment and Plan: - continue home nortriptyline and sertraline (5) Hypothyroidism: Code(s): E03.9 - Hypothyroidism, unspecified Status: Acute Assessment and Plan: - continue home Synthroid (6) Osteoporosis: Code(s): M81.0 - Age-related osteoporosis without current pathological fracture Status: Acute Assessment and Plan: - previously managed on Prolia, not currently on medication - per patient, she is due for repeat DEXA scan. Encouraged close outpatient follow-up with PCP Subjective Date/time seen: 02/07/25 11:38 Interval history: A 69-year-old female with PMH overactive bladder, depression anxiety, hypothyroidism, CKD, GERD, hyperlipidemia, hypertension, [id number] diabetes mellitus presents to [facility] ER 02/05/2025 with a complaint of inability to walk and bilateral ankle pain. Patient seen and examined at bedside. Pain well-controlled. Agreeable to awaiting for surgical boots tomorrow. Review of Systems Review of Systems: All systems reviewed & are unremarkable except as noted in HPI and below Exam Narrative: General: NAD Eyes: EOMI ENT: neck supple Cardiovascular: Regular rate and rhythm. Cap refill <3 sec bilateral great toes Respiratory: Clear to auscultation, respirations even and unlabored on RA Gastrointestinal: Soft, non tender Genitourinary: no suprapubic tenderness Musculoskeletal: No edema. Bilateral leg splints. Skin: warm, dry Neuro: Alert. Sensation intact BLEs. Psych: Mood appropriate Objective Data Vital Signs Vital Signs: Vital Signs - 24 hr 02/06/25 13:54 02/06/25 18:49 02/06/25 19:03 Temperature 97.2 F L 98.4 F 98.1 F Pulse Rate 70 85 75 Respiratory Rate 16 18 12 Blood Pressure 104/62 109/52 L 117/65 Pulse Oximetry 93 95 91 02/06/25 21:06 02/07/25 00:00 02/07/25 04:00 Temperature 98.6 F 97.9 F 98.1 F Pulse Rate 84 84 78 Respiratory Rate 18 18 18 Blood Pressure 112/57 L 110/64 115/68 Pulse Oximetry 91 92 93 Intake/Output Intake/Output: Intake & Output 02/04/25 02/05/25 02/06/25 02/07/25 23:59 23:59 23:59 23:59 Intake Total 710 120 Output Total 250 Balance 710 -130 Meds/Results Medications: Active Medications Generic Name Dose Route Start Last Admin Trade Name Freq PRN Reason Stop Dose Admin Acetaminophen 500 mg 02/06/25 06:44 Acetaminophen 500 Mg Tablet PO Q6H PRN Mild Pain (1-3) or Fever Hydrocodone Bitart/Acetaminophen 1 tab 02/06/25 06:44 02/07/25 05:34 Hydrocodone/Acetaminophen (*Crx) 10-325 Mg Tablet PO 1 tab Q6H PRN Administration Pain Rated 7-10 Aspirin 325 mg 02/07/25 09:00 02/07/25 08:52 Aspirin 325 Mg Enteric Tablet PO 325 mg QAM STEFANIE Administration Dextrose 12.5 gm 02/06/25 06:50 Dextrose 50% 25 Gm/50 Ml Syringe IV PUSH PRN PRN Hypoglycemia Protocol Glucose 15 gm 02/06/25 06:50 Glucose Oral Gel 15 Gm Of Glucse In 37.5 Gm Tube PO PRN PRN Hypoglycemia Protocol Dextrose 1,000 mls @ 100 mls/hr 02/06/25 06:50 Dextrose 5% 1,000 Ml IVPB PRN PRN Hypoglycemia Protocol Insulin Aspart 2 - 5 units 02/06/25 08:00 02/07/25 08:44 Insulin Aspart (*Bkc) 100 Units/Ml SUB-Q Not Given [facility]ID[facility] Protocol Levothyroxine Sodium 75 mcg 02/07/25 06:30 02/07/25 05:33 Levothyroxine Sodium 75 Mcg Tablet PO 75 mcg DAILY@0630 STEFANIE Administration Morphine Sulfate 2 mg 02/06/25 06:44 02/06/25 19:05 Morphine Sulfate (*Crx) 2 Mg/Ml Inj IV PUSH 2 mg Q4H PRN Administration Pain Rated 7-10 Nortriptyline HCl 10 mg 02/06/25 06:41 Nortriptyline Hcl 10 Mg Capsule PO HS PRN Insomnia Pantoprazole Sodium 40 mg 02/06/25 09:00 02/07/25 08:52 Pantoprazole 40 Mg Tablet PO 40 mg BID STEFANIE Administration Polyethylene Glycol 17 gm 02/07/25 09:20 Polyethylene Glycol 3350 17 Gm Powd.Pack PO QAM STEFANIE Rosuvastatin Calcium 20 mg 02/06/25 17:00 02/06/25 17:01 Rosuvastatin 20 Mg Tablet PO 20 mg 1700 STEFANIE Administration Sertraline HCl 100 mg 02/06/25 09:00 02/07/25 08:52 Sertraline Hcl 50 Mg Tablet PO 100 mg DAILY STEFANIE Administration Radiology Results: ITS Impressions Ankle X-Ray 02/06/25 09:21 IMPRESSION: 1. Minimally displaced oblique fracture of the distal left fibula consistent with a Cortez type B injury pattern. ADDENDUM: 02/06/25 1120 CORRECTION: There is a dictation error in the impression section. With the correction capitalized this should read- 1. Minimally displaced oblique fracture of the distal RIGHT fibula consistent with a Cortez type B injury pattern. Labs Labs: Laboratory Results - last 24 hr 02/06/25 02/06/25 02/06/25 11:43 12:25 16:53 POC Capillary Glucose 64 L 95 130 H 02/06/25 02/07/25 02/07/25 19:41 00:20 05:36 POC Capillary Glucose 160 H 114 H 124 H 02/07/25 07:53 POC Capillary Glucose 112 H Quality VTE Prophylaxis VTE prophylaxis: pharmacologic ordered
[2025-02-07] MEDS: MORPHINE SULFATE (*CRX) 2 MG/ML INJ IV PUSH ×2 (13:20→18:09)
[2025-02-07] MEDS: ROSUVASTATIN 20 MG TABLET PO (18:04)
[2025-02-08] VITALS (7 sets, daily range): BP systolic 104–124; BP diastolic 53–69; PULSE 73–84; RESP 12–20; TEMP 36.4–37; O2SAT 94–95
[2025-02-08] MEDS: HYDROcodone/acetaminophen (*CRX) 10-325 MG TABLET 1 TAB PO ×2 (00:39→06:18)
[2025-02-08] MEDS: LEVOTHYROXINE SODIUM 75 MCG TABLET PO (06:18)
--- NOTE | 2025-02-08 07:59 | PCPTNOTE ---
Continue to wait for boots/braces prior to PT evaluation. Will follow.
[2025-02-08] MEDS: PANTOPRAZOLE 40 MG TABLET PO ×2 (10:26→17:54)
[2025-02-08] MEDS: SERTRALINE HCL 50 MG TABLET 100 MG PO (10:26)
[2025-02-08] MEDS: ASPIRIN 325 MG ENTERIC TABLET PO (10:30)
--- NOTE | 2025-02-08 11:31 | P.PNOP_ITS ---
Progress Note: A&P Assessment and Plan (1) Ankle injury: Qualifiers: Encounter type: subsequent encounter Laterality: unspecified laterality Qualified Code(s): S99.919D - Unspecified injury of unspecified ankle, subsequent encounter Code(s): S99.919A - Unspecified injury of unspecified ankle, initial encounter Status: Acute Assessment and Plan: Bilateral ankle distal fibular fractures. Splints removed today. Will try to fit with fracture boot to start mobilization with therapy and weight-bearing as tolerated. Disposition home when stable and able to mobilize. Subjective Subjective Date/Time Seen: 02/08/25 11:31 Principal diagnosis: Bilateral ankle fractures Interval history: hospital day 2 status post bilateral ankle fractures. Patient states pain well controlled. Splints removed today. Review of Systems Constitutional: Constitutional: Denies fever(s) Eyes: Eyes: Denies blurry vision ENT: Reports Normal hearing present Cardiovascular: Cardiovascular: Denies chest pain and Denies dyspnea Respiratory: Respiratory: Denies dyspnea and Denies wheezing Gastrointestinal: Gastrointestinal: Denies abdominal pain Genitourinary: Genitourinary: Denies urinary urgency Musculoskeletal: Musculoskeletal: Reports as per HPI and Denies numbness Integumentary/Breasts: Skin/Breast: Denies changing lesions and Denies sores Neurologic: Reports Normal hearing present, Denies behavioral changes, Denies confusion, Denies numbness and Denies convulsions Psychiatric: Psychiatric: Denies behavioral changes, Denies confusion and Denies hallucinations Endocrine: Endocrine: Denies heat intolerance Hematologic/Lymphatic: Hematologic/Lymphatic: Denies easy bleeding Allergic/Immunologic: Allergic/Immunologic: Denies wheezing Exam Const: General: No confusion Orientation/consciousness: No confusion Neck: Neck: supple and nontender Resp: Effort & Inspection: normal respiratory effort and no audible wheezes Neuro: General: No confusion Extrem: General: capillary refill normal Right upper extremity: normal to inspection Left upper extremity: normal to inspection Right lower extremity: hip/thigh Details: no tenderness, knee Details: abnormal ROM ( Knee range of motion deferred secondary to fracture); no tenderness and no swelling, ankle Details: tenderness Location: of the lateral malleolus and anteromedially, swelling ( moderate) Details: laterally and medially, abnormal ROM Details: pain with active ROM and ecchymosis ( moderate diffusely ankle) and foot Details: vascular exam Details: dorsalis pedis pulse present and normal capillary refill, tendon exam (intact, able to flex and extend toes) and motor-sensory exam Details: light-touch normal Location: in all toes Left lower extremity: hip/thigh Details: normal to inspection, knee Details: normal to inspection and knee ligament exam normal Details: anterior drawer test normal, valgus stress test normal, varus stress test normal and Chele's test normal, ankle (no calf tenderness) Details: abnormal to inspection ( Obvious swelling at the ankle joint), tenderness ( lateral malleolus), swelling (moderate lateral ankle), abnormal ROM Details: pain with active ROM Details: with plantar flexion and with dorsiflexion and with range as follows ( limited secondary to injury), crepitus Details: at the lateral malleolus and other ( good capillary refill in toes, 2+ DP pulse) and foot Details: normal capillary refill, toes with normal ROM, vascular exam Details: dorsalis pedis pulse present and motor-sensory exam Other: Bilateral ankle splints removed. Left ankle ecchymosis over the lateral aspect, tenderness distal fibula. No medial tenderness. Right ankle with ec chymosis over the lateral aspect, tenderness over the distal fibula. No medial tenderness. Able to move toes. Skin intact. Psych: Affect: normal affect Objective Data Vital Signs Vital Signs: Vital Signs - 24 hr 02/07/25 12:00 02/07/25 13:18 02/07/25 14:00 Temperature 97.8 F 97.8 F Pulse Rate 76 77 76 Respiratory Rate 18 18 Blood Pressure 127/71 136/70 127/71 Pulse Oximetry 95 95 95 Oxygen Delivery 02/07/25 16:00 02/07/25 19:49 02/07/25 20:00 Temperature 97.6 F 98.2 F Pulse Rate 76 81 Respiratory Rate 18 18 Blood Pressure 127/71 110/64 Pulse Oximetry 95 93 Oxygen Delivery Room Air 02/07/25 20:44 02/08/25 00:00 02/08/25 04:00 Temperature 98.2 F 98.6 F 97.7 F Pulse Rate 81 76 73 Respiratory Rate 18 20 18 Blood Pressure 110/64 115/69 119/62 Pulse Oximetry 93 94 95 Oxygen Delivery 02/08/25 04:45 02/08/25 08:00 Temperature 97.7 F 97.7 F Pulse Rate 73 84 Respiratory Rate 18 12 Blood Pressure 119/62 124/63 Pulse Oximetry 95 94 Oxygen Delivery Intake/Output Intake/Output: Intake & Output 02/05/25 02/06/25 02/07/25 02/08/25 23:59 23:59 23:59 23:59 Intake Total 710 360 430 Output Total 250 300 Balance 710 110 130 Meds/Results Medications: Active Medications Generic Name Dose Route Start Last Admin Trade Name Freq PRN Reason Stop Dose Admin Acetaminophen 500 mg 02/06/25 06:44 Acetaminophen 500 Mg Tablet PO Q6H PRN Mild Pain (1-3) or Fever Hydrocodone Bitart/Acetaminophen 1 tab 02/06/25 06:44 02/08/25 06:18 Hydrocodone/Acetaminophen (*Crx) 10-325 Mg Tablet PO 1 tab Q6H PRN Administration Pain Rated 7-10 Aspirin 325 mg 02/07/25 09:00 02/08/25 10:30 Aspirin 325 Mg Enteric Tablet PO 325 mg QAM STEFANIE Administration Dextrose 12.5 gm 02/06/25 06:50 Dextrose 50% 25 Gm/50 Ml Syringe IV PUSH PRN PRN Hypoglycemia Protocol Glucose 15 gm 02/06/25 06:50 Glucose Oral Gel 15 Gm Of Glucse In 37.5 Gm Tube PO PRN PRN Hypoglycemia Protocol Dextrose 1,000 mls @ 100 mls/hr 02/06/25 06:50 Dextrose 5% 1,000 Ml IVPB PRN PRN Hypoglycemia Protocol Insulin Aspart 2 - 5 units 02/06/25 08:00 02/08/25 10:22 Insulin Aspart (*Bkc) 100 Units/Ml SUB-Q Not Given TIDWM [facility] Protocol Levothyroxine Sodium 75 mcg 02/07/25 06:30 02/08/25 06:18 Levothyroxine Sodium 75 Mcg Tablet PO 75 mcg DAILY@0630 [facility] Administration Morphine Sulfate 2 mg 02/06/25 06:44 02/07/25 18:09 Morphine Sulfate (*Crx) 2 Mg/Ml Inj IV PUSH 2 mg Q4H PRN Administration Pain Rated 7-10 Nortriptyline HCl 10 mg 02/06/25 06:41 Nortriptyline Hcl 10 Mg Capsule PO HS PRN Insomnia Pantoprazole Sodium 40 mg 02/06/25 09:00 02/08/25 10:26 Pantoprazole 40 Mg Tablet PO 40 mg BID STEFANIE Administration Polyethylene Glycol 17 gm 02/07/25 09:20 02/08/25 10:26 Polyethylene Glycol 3350 17 Gm Powd.Pack PO Not Given QAM [facility] Rosuvastatin Calcium 20 mg 02/06/25 17:00 02/07/25 18:04 Rosuvastatin 20 Mg Tablet PO 20 mg 1700 STEFANIE Administration Sertraline HCl 100 mg 02/06/25 09:00 02/08/25 10:26 Sertraline Hcl 50 Mg Tablet PO 100 mg DAILY STEFANIE Administration Radiology Results: ITS Impressions Ankle X-Ray 02/06/25 09:21 IMPRESSION: 1. Minimally displaced oblique fracture of the distal left fibula consistent with a Cortez type B injury pattern. ADDENDUM: 02/06/25 1120 CORRECTION: There is a dictation error in the impression section. With the correction capitalized this should read- 1. Minimally displaced oblique fracture of the distal RIGHT fibula consistent with a Cortez type B injury pattern. Labs Labs: Laboratory Results - last 24 hr 02/07/25 02/07/25 02/07/25 11:55 16:49 17:37 POC Capillary Glucose 78 68 113 H 02/07/25 02/08/25 20:46 08:03 POC Capillary Glucose 159 H 96
--- NOTE | 2025-02-08 14:53 | P.PNIM_ITS ---
Progress Note: A&P Assessment and Plan (1) Ankle fracture, right: Code(s): S82.891A - Other fracture of right lower leg, initial encounter for closed fracture Status: Acute Assessment and Plan: - XR with minimally displaced oblique fracture of the distal R fibula consistent with Cortez type B injury pattern - splint applied in ED - ortho consulted - planning for nonoperative management for now, bilateral cha rgical boots applied. ASA for DVT prophylaxis. - continue pain control - Tylenol 1000 mg QID, oxycodone 5mg q4H PRN for breakthrough, ice/elevation. Avoid NSAIDs due to GFR <60. - PT recommended SNF L (2) Ankle fracture, left: Code(s): S82.892A - Other fracture of left lower leg, initial encounter for closed fracture Status: Acute Assessment and Plan: - XR with minimally displaced oblique fracture of the distal R fibula consistent with Cortez type B injury pattern - splint applied in ED - ortho consulted - planning for nonoperative management, surgical boot applied. - continue pain control - PT/OT (3) Diabetes type 2, controlled: Code(s): E11.9 - Type 2 diabetes mellitus without complications Status: Acute Assessment and Plan: - hold home PO glimepiride and Farxiga - low dose SSI - monitor POCT glucose - hypoglycemia protocol (4) Depression: Code(s): F32.A - Depression, unspecified Status: Acute Assessment and Plan: - continue home nortriptyline and sertraline (5) Hypothyroidism: Code(s): E03.9 - Hypothyroidism, unspecified Status: Acute Assessment and Plan: - continue home Synthroid (6) Osteoporosis: Code(s): M81.0 - Age-related osteoporosis without current pathological fracture Status: Acute Assessment and Plan: - previously managed on Prolia, not currently on medication - per patient, she is due for repeat DEXA scan. Encouraged close outpatient follow-up with PCP Plan DVT prophylaxis: ASA per orthopedic surgery Disposition: home vs. SNF in 1-2 days pending patient progress Subjective Date/time seen: 02/08/25 14:53 Interval history: Patient seen and examined at bedside. Patient had significant pain in both ankles when trying to ambulate with therapy. PT recommended SNF. Patient is open to rehab if absolutely necessary. Discussed attempting better pain control first and she will discuss with her family. Review of Systems Review of Systems: All systems reviewed & are unremarkable except as noted in HPI and below Exam Narrative: General: NAD Eyes: EOMI ENT: neck supple Cardiovascular: Regular rate and rhythm. Cap refill <3 sec bilateral great toes Respiratory: Clear to auscultation, respirations even and unlabored on RA Gastrointestinal: Soft, non tender Genitourinary: no suprapubic tenderness Musculoskeletal: No edema. Bilateral leg splints. Skin: warm, dry Neuro: Alert. Sensation intact BLEs. Psych: Mood appropriate Objective Data Vital Signs Vital Signs: Vital Signs - 24 hr 02/07/25 16:00 02/07/25 19:49 02/07/25 20:00 Temperature 97.6 F 98.2 F Pulse Rate 76 81 Respiratory Rate 18 18 Blood Pressure 127/71 110/64 Pulse Oximetry 95 93 Oxygen Delivery Room Air 02/07/25 20:44 02/08/25 00:00 02/08/25 04:00 Temperature 98.2 F 98.6 F 97.7 F Pulse Rate 81 76 73 Respiratory Rate 18 20 18 Blood Pressure 110/64 115/69 119/62 Pulse Oximetry 93 94 95 Oxygen Delivery 02/08/25 04:45 02/08/25 08:00 02/08/25 13:06 Temperature 97.7 F 97.7 F Pulse Rate 73 84 Respiratory Rate 18 12 Blood Pressure 119/62 124/63 Pulse Oximetry 95 94 Oxygen Delivery Room Air Intake/Output Intake/Output: Intake & Output 02/05/25 02/06/25 02/07/25 02/08/25 23:59 23:59 23:59 23:59 Intake Total 710 360 670 Output Total 250 300 Balance 710 110 370 Meds/Results Medications: Active Medications Generic Name Dose Route Start Last Admin Trade Name Freq PRN Reason Stop Dose Admin Acetaminophen 1,000 mg 02/08/25 14:52 Acetaminophen 500 Mg Tablet PO Q6H [facility] Aspirin 325 mg 02/07/25 09:00 02/08/25 10:30 Aspirin 325 Mg Enteric Tablet PO 325 mg QAM [facility] Administration Dextrose 12.5 gm 02/06/25 06:50 Dextrose 50% 25 Gm/50 Ml Syringe IV PUSH PRN PRN Hypoglycemia Protocol Glucose 15 gm 02/06/25 06:50 Glucose Oral Gel 15 Gm Of Glucse In 37.5 Gm Tube PO PRN PRN Hypoglycemia Protocol Dextrose 1,000 mls @ 100 mls/hr 02/06/25 06:50 Dextrose 5% 1,000 Ml IVPB PRN PRN Hypoglycemia Protocol Insulin Aspart 2 - 5 units 02/06/25 08:00 02/08/25 13:09 Insulin Aspart (*Bkc) 100 Units/Ml SUB-Q Not Given TIDWM [facility] Protocol Levothyroxine Sodium 75 mcg 02/07/25 06:30 02/08/25 06:18 Levothyroxine Sodium 75 Mcg Tablet PO 75 mcg DAILY@0630 STEFANIE Administration Nortriptyline HCl 10 mg 02/06/25 06:41 Nortriptyline Hcl 10 Mg Capsule PO HS PRN Insomnia Oxycodone HCl 5 mg 02/08/25 14:16 Oxycodone Hcl (*Crx) 5 Mg Tab Ir PO Q4H PRN Pain Rated 7-10 Pantoprazole Sodium 40 mg 02/06/25 09:00 02/08/25 10:26 Pantoprazole 40 Mg Tablet PO 40 mg BID STEFANIE Administration Polyethylene Glycol 17 gm 02/07/25 09:20 02/08/25 10:26 Polyethylene Glycol 3350 17 Gm Powd.Pack PO Not Given QAM [facility] Rosuvastatin Calcium 20 mg 02/06/25 17:00 02/07/25 18:04 Rosuvastatin 20 Mg Tablet PO 20 mg 1700 STEFANIE Administration Sertraline HCl 100 mg 02/06/25 09:00 02/08/25 10:26 Sertraline Hcl 50 Mg Tablet PO 100 mg DAILY STEFANIE Administration Radiology Results: ITS Impressions Ankle X-Ray 02/06/25 09:21 IMPRESSION: 1. Minimally displaced oblique fracture of the distal left fibula consistent with a Cortez type B injury pattern. ADDENDUM: 02/06/25 1120 CORRECTION: There is a dictation error in the impression section. With the correction capitalized this should read- 1. Minimally displaced oblique fracture of the distal RIGHT fibula consistent with a Cortez type B injury pattern. Labs Labs: Laboratory Results - last 24 hr 02/07/25 02/07/25 02/07/25 16:49 17:37 20:46 POC Capillary Glucose 68 113 H 159 H 02/08/25 02/08/25 08:03 11:46 POC Capillary Glucose 96 93 Quality VTE Prophylaxis VTE prophylaxis: pharmacologic ordered
[2025-02-08] MEDS: oxyCODONE HCL (*CRX) 5 MG TAB IR PO (14:55)
[2025-02-08] MEDS: ACETAMINOPHEN 500 MG TABLET 1000 MG PO ×2 (17:55→23:38)
[2025-02-08] MEDS: ROSUVASTATIN 20 MG TABLET PO (17:57)
[2025-02-09] VITALS: BP 100/61; PULSE 70; RESP 18; TEMP 36.4; O2SAT 95
[2025-02-09 04:00] VITALS: BP 131/65; PULSE 68; RESP 20; TEMP 36.4; O2SAT 97
[2025-02-09 05:10] VITALS: BP 131/65; PULSE 68; RESP 20; TEMP 36.4; O2SAT 97
[2025-02-09] MEDS: ACETAMINOPHEN 500 MG TABLET 1000 MG PO ×2 (05:37→11:17)
[2025-02-09] MEDS: LEVOTHYROXINE SODIUM 75 MCG TABLET PO (05:37)
[2025-02-09] MEDS: SERTRALINE HCL 50 MG TABLET 100 MG PO (08:41)
[2025-02-09] MEDS: PANTOPRAZOLE 40 MG TABLET PO (08:41)
[2025-02-09] MEDS: ASPIRIN 325 MG ENTERIC TABLET PO (08:41)
[2025-02-09] MEDS: oxyCODONE HCL (*CRX) 5 MG TAB IR PO (08:41)
--- NOTE | 2025-02-09 09:14 | P.PNOP_ITS ---
Progress Note: A&P Assessment and Plan (1) Ankle injury: Qualifiers: Encounter type: subsequent encounter Laterality: unspecified laterality Qualified Code(s): S99.919D - Unspecified injury of unspecified ankle, subsequent encounter Code(s): S99.919A - Unspecified injury of unspecified ankle, initial encounter Status: Acute Assessment and Plan: Bilateral ankle distal fibular fractures. Patient fit with fracture boot. Start mobilization with therapy and weight-bearing as tolerated. Disposition home vs SNF/[facility] when stable and able to mobilize. Plan for outpatient orthopedic follow up. Time Spent With Patient Time with patient: less than 15 minutes Subjective Subjective Date/Time Seen: 02/09/25 09:15 Principal diagnosis: Bilateral ankle fractures Interval history: Hospital day 3 status post bilateral ankle fractures. Patient states pain well controlled. Splints removed yesterday, fracture boots available. Review of Systems Review of Systems: All systems reviewed & are unremarkable except as noted in HPI and below Exam Const: General: No confusion Orientation/consciousness: No confusion Neck: Neck: supple and nontender Resp: Effort & Inspection: normal respiratory effort and no audible wheezes Neuro: General: No confusion Extrem: General: capillary refill normal Right upper extremity: normal to inspection Left upper extremity: normal to inspection Right lower extremity: hip/thigh Details: no tenderness, knee Details: abnormal ROM ( Knee range of motion deferred secondary to fracture); no tenderness and no swelling, ankle Details: tenderness Location: of the lateral malleolus and anteromedially, swelling ( moderate) Details: laterally and medially, abnormal ROM Details: pain with active ROM and ecchymosis ( moderate diffusely ankle) and foot Details: vascular exam Details: dorsalis pedis pulse present and normal capillary refill, tendon exam (intact, able to flex and extend toes) and motor-sensory exam Details: light-touch normal Location: in all toes Left lower extremity: hip/thigh Details: normal to inspection, knee Details: normal to inspection and knee ligament exam normal Details: anterior drawer test normal, valgus stress test normal, varus stress test normal and Chele's test normal, ankle (no calf tenderness) Details: abnormal to inspection ( Obvious swelling at the ankle joint), tenderness ( lateral malleolus), swelling (moderate lateral ankle), abnormal ROM Details: pain with active ROM Details: with plantar flexion and with dorsiflexion and with range as follows ( limited secondary to injury), crepitus Details: at the lateral malleolus and other ( good capillary refill in toes, 2+ DP pulse) and foot Details: normal capillary refill, toes with normal ROM, vascular exam Details: dorsalis pedis pulse present and motor-sensory exam Other: Bilateral ankle splints removed. Left ankle ecchymosis over the lateral aspe ct, tenderness distal fibula. No medial tenderness. Right ankle with ecchymosis over the lateral aspect, tenderness over the distal fibula. No medial tenderness. Able to move toes. Skin intact. Psych: Affect: normal affect Objective Data Vital Signs Vital Signs: Vital Signs - 24 hr 02/08/25 13:06 02/08/25 20:00 02/08/25 20:00 Temperature 36.4 C Pulse Rate 79 Respiratory Rate 18 Blood Pressure 104/53 L Pulse Oximetry 94 Oxygen Delivery Room Air Room Air 02/08/25 20:15 02/08/25 20:29 02/09/25 00:00 Temperature 36.4 C 36.4 C Pulse Rate 79 70 Respiratory Rate 18 18 Blood Pressure 104/53 L 100/61 Pulse Oximetry 94 94 95 Oxygen Delivery Room Air 02/09/25 04:00 02/09/25 05:10 Temperature 36.4 C 36.4 C Pulse Rate 68 68 Respiratory Rate 20 20 Blood Pressure 131/65 131/65 Pulse Oximetry 97 97 Oxygen Delivery Intake/Output Intake/Output: Intake & Output 02/06/25 02/07/25 02/08/25 02/09/25 23:59 23:59 23:59 23:59 Intake Total 352 760 3623 Output Total 250 300 Balance 710 110 910 Meds/Results Medications: Active Medications Generic Name Dose Route Start Last Admin Trade Name Freq PRN Reason Stop Dose Admin Acetaminophen 1,000 mg 02/08/25 18:00 02/09/25 05:37 Acetaminophen 500 Mg Tablet PO 1,000 mg Q6HR STEFANIE Administration Aspirin 325 mg 02/07/25 09:00 02/09/25 08:41 Aspirin 325 Mg Enteric Tablet PO 325 mg QAM STEFANIE Administration Dextrose 12.5 gm 02/06/25 06:50 Dextrose 50% 25 Gm/50 Ml Syringe IV PUSH PRN PRN Hypoglycemia Protocol Glucose 15 gm 02/06/25 06:50 Glucose Oral Gel 15 Gm Of Glucse In 37.5 Gm Tube PO PRN PRN Hypoglycemia Protocol Dextrose 1,000 mls @ 100 mls/hr 02/06/25 06:50 Dextrose 5% 1,000 Ml IVPB PRN PRN Hypoglycemia Protocol Insulin Aspart 2 - 5 units 02/06/25 08:00 02/09/25 08:46 Insulin Aspart (*Bkc) 100 Units/Ml SUB-Q Not Given [facility] Protocol Levothyroxine Sodium 75 mcg 02/07/25 06:30 02/09/25 05:37 Levothyroxine Sodium 75 Mcg Tablet PO 75 mcg DAILY@0630 STEFANIE Administration Nortriptyline HCl 10 mg 02/06/25 06:41 Nortriptyline Hcl 10 Mg Capsule PO HS PRN Insomnia Oxycodone HCl 5 mg 02/08/25 14:16 02/09/25 08:41 Oxycodone Hcl (*Crx) 5 Mg Tab Ir PO 5 mg Q4H PRN Administration Pain Rated 7-10 Pantoprazole Sodium 40 mg 02/06/25 09:00 02/09/25 08:41 Pantoprazole 40 Mg Tablet PO 40 mg BID STEFANIE Administration Polyethylene Glycol 17 gm 02/07/25 09:20 02/08/25 10:26 Polyethylene Glycol 3350 17 Gm Powd.Pack PO Not Given QAM STEFANIE Rosuvastatin Calcium 20 mg 02/06/25 17:00 02/08/25 17:57 Rosuvastatin 20 Mg Tablet PO 20 mg 1700 STEFANIE Administration Sertraline HCl 100 mg 02/06/25 09:00 02/09/25 08:41 Sertraline Hcl 50 Mg Tablet PO 100 mg DAILY STEFANIE Administration Radiology Results: ITS Impressions Ankle X-Ray 02/06/25 09:21 IMPRESSION: 1. Minimally displaced oblique fracture of the distal left fibula consistent with a Cortez type B injury pattern. ADDENDUM: 02/06/25 1120 CORRECTION: There is a dictation error in the impression section. With the correction capitalized this should read- 1. Minimally displaced oblique fracture of the distal RIGHT fibula consistent with a Cortez type B injury pattern. Labs Labs: Laboratory Results - last 24 hr 02/08/25 02/08/25 02/08/25 11:46 16:46 20:19 POC Capillary Glucose 93 128 H 159 H 02/09/25 08:13 POC Capillary Glucose 98
[2025-02-09 12:00] VITALS: BP 118/73; PULSE 82; RESP 18; TEMP 36.4; O2SAT 99
--- NOTE | 2025-02-09 14:12 | P.DS_ITS ---
DS: Admitting Diagnosis Discharge Date 02/09/25 Admitting Diagnosis - bilateral ankle fractures DS: Discharge Diagnosis Discharge Diagnosis (1) Ankle fracture, right: Code(s): S82.891A - Other fracture of right lower leg, initial encounter for closed fracture Status: Acute (2) Ankle fracture, left: Code(s): S82.892A - Other fracture of left lower leg, initial encounter for closed fracture Status: Acute (3) Diabetes type 2, controlled: Code(s): E11.9 - Type 2 diabetes mellitus without complications Status: Acute (4) Depression: Code(s): F32.A - Depression, unspecified Status: Acute (5) Hypothyroidism: Code(s): E03.9 - Hypothyroidism, unspecified Status: Acute (6) Osteoporosis: Code(s): M81.0 - Age-related osteoporosis without current pathological fracture Status: Acute DS: Summary Hospital Course Reason for hospitalization: - bilateral ankle fractures Hospital Course: 69-year-old female with PMH overactive bladder, depression anxiety, hypothyroidism, CKD, GERD, hyperlipidemia, hypertension, [id number] diabetes mellitus presents to [facility] ER 02/05/2025 with a complaint of inability to walk and bilateral ankle pain. In the ER she received morphine 4 mg IV x1 and Zofran 4 mg IV x1. Pain was controlled thereafter. X-ray of the ankles reveal bilateral acute nondisplaced Cortez B fracture of the lateral malleoli. Dr. Workman contacted from the ER. Bilateral short-leg posterior fiberglass splints were placed. The patient was admitted for orthopedic surgery consultation. Orthopedic surgery evaluated patient and recommended bilateral fracture boots. Patient was fitted for fracture boots and worked with PT/OT. Initially recommended skilled therapy. Ambulation improved with pain control. She was able to ambulate halls and navigate stairs with therapy on day of discharge. Patient wished to return home with support from family. Orthopedic surgery recommended to continue weight-bearing as tolerated with fracture boots, aspirin 325 mg daily for DVT prophylaxis and continued pain control. She will follow up with Orthopedic surgery in 4 weeks. Patient encouraged to follow-up with her PCP in regards to her history of osteoporosis. Patient discharged home in stable condition. Home health arranged per care coordination. Time Spent with Patient Time attestation: Total time spent providing and/or coordinating discharge services: Time spent: Greater than 30 minutes Exam Narrative: General: NAD Eyes: EOMI ENT: neck supple Cardiovascular: Regular rate and rhythm. Respiratory: Clear to auscultation, respirations even and unlabored on RA Gastrointestinal: Soft, non tender Genitourinary: no suprapubic tenderness Musculoskeletal: No edema. Bilateral fracture boots in place. Skin: warm, dry Neuro: Alert. Psych: Mood appropriate DS: Data Data Completed and Pending Completed studies during hospitalization: ITS Impressions Ankle X-Ray 02/06/25 09:19 IMPRESSION: 1. Minimally displaced oblique fracture of the distal left fibula consistent with a Cortez type B injury pattern. Ankle X-Ray 02/06/25 09:21 IMPRESSION: 1. Minimally displaced oblique fracture of the distal left fibula consistent with a Cortez type B injury pattern. ADDENDUM: 02/06/25 1120 CORRECTION: There is a dictation error in the impression section. With the correction capitalized this should read- 1. Minimally displaced oblique fracture of the distal RIGHT fibula consistent with a Cortez type B injury pattern. Labs on day of discharge: Labs from last 24 hours 02/09/25 02/09/25 02/08/25 12:20 08:13 20:19 POC Capillary Glucose 102 98 159 H 02/08/25 16:46 POC Capillary Glucose 128 H Discharge Plan Discharge Attending physician on discharge: Kindra Colby Consulting providers: Joselo Workman; Susan Strauss Discharging Clinician: Susan Strauss Anticipated Discharge Date/Time: 02/09/25 14:07 Patient Disposition: Home with Home Health Service Activity: may shower and no driving Diet: as tolerated Wound Care Instructions: follow printed instructions Discharge Instructions: Orthopedic Recommendations Dr. Joselo Workman [phone] * Weight bearing as tolerated WITH boots on both foot/ankle bilaterally. * Pain control. * Ice. Elevate. * Follow up in 4 weeks. * continue Tylenol (acetaminophen) PRN for pain. Please note Percocet should only be used for severe pain. Percocet contains 325 mg of acetaminophen. Do not exceed 4000mg of acetaminophen daily or more than 1000 mg in a single dose. * You have been started on a daily aspirin to prevent blood clots. Take this until your follow-up appointment with orthopedic surgery. Care Coordination: Patient to have [facility] for PT/OT eval and treat, and [place] [facility]. Their phone number is [phone], if you have any questions. They will contact you to schedule their visits. Patient Language: Japanese Stand Alone Forms: General Discharge Information Follow-up/Referrals: Joselo Workman MD [Physician, Orthopedics] - 03/09/25 8:30 am Referral Note: Discharge Medications: New oxycodone-acetaminophen [Percocet] 5-325 mg tablet 1 tablet PO Q6H PRN (Reason: pain) Qty: 30 0RF aspirin 325 mg Tablet,Delayed Release (Dr/Ec) 325 mg PO QAM Qty: 30 0RF polyethylene glycol 3350 [Miralax] 17 gram Powder In Packet 17 g PO QAM PRN (Reason: constipation) Qty: 30 0RF acetaminophen 500 mg capsule 1,000 mg PO Q6H PRN (Reason: pain) Qty: 60 0RF Continued lisinopril 5 mg tablet 5 mg PO DAILY rosuvastatin 20 mg tablet 20 mg PO 1700 dapagliflozin propanediol [Farxiga] 10 mg tablet 10 mg PO DAILY nortriptyline 10 mg capsule 10 mg PO HS PRN (Reason: insomnia) sertraline 100 mg tablet 100 mg PO DAILY omeprazole 40 mg capsule,delayed release(DR/EC) 40 mg PO DAILY glimepiride 2 mg tablet 2 mg PO BID levothyroxine 75 mcg tablet 75 mcg PO DAILY amlodipine 10 mg tablet 10 mg PO DAILY oxybutynin chloride 5 mg tablet 5 mg PO BID Date of admission: 02/06/25 05:02 Primary Care Provider: Clive,Don Daley Admitting Provider: Kindra Colby Attending physician on admission: Kindra Colby Condition: Stable
== END 2025-02-09 16:00 | disposition home health service (06) ==
LOC: ANHED 04:46 → ANH2MED 05:35
PROVIDERS: Admitting Provider General Practice; Emergency Provider Emergency Medicine; PCP Internal Medicine; Visit Provider General Practice
DX: S82.832A Other fracture of upper and lower end of left fibula, initial encounter for closed fracture (principal); S82.63XA Displaced fracture of lateral malleolus of unspecified fibula, initial encounter for closed fracture; V78.4XXA Person boarding or alighting from bus injured in noncollision transport accident, initial encounter; E11.8 Type 2 diabetes mellitus with unspecified complications; E03.9 Hypothyroidism, unspecified; K21.9 Gastro-esophageal reflux disease without esophagitis; E78.5 Hyperlipidemia, unspecified; I12.9 Hypertensive chronic kidney disease with stage 1 through stage 4 chronic kidney disease, or unspecified chronic kidney disease; N18.9 Chronic kidney disease, unspecified; M81.0 Age-related osteoporosis without current pathological fracture; N32.81 Overactive bladder; F41.8 Other specified anxiety disorders; Z79.84 Long term (current) use of oral hypoglycemic drugs; Z79.899 Other long term (current) drug therapy; Z83.3 Family history of diabetes mellitus; Z82.49 Family history of ischemic heart disease and other diseases of the circulatory system; Z82.3 Family history of stroke; Z80.0 Family history of malignant neoplasm of digestive organs
CPT/HCPCS: 27786; 36415; 73610; 80053; 81003; 82948; 83735; 85025; 93005; 96374; 96375; 96376; 97110; 97116; 97161; 97165; 97530; 97535; 99285; A9270; G0378; J2270; J2405; J7030